=== PATIENT | male | born 1975 | race Caucasian/White ===

== ENCOUNTER → 2020-09-04 09:05 | Outpatient (BNVA) | payer MEDICAID, SELFPAY | PROVIDERS: PCP Family Medicine; Visit Provider Nurse Practitioner Gerontology ==

== ENCOUNTER 2020-12-09 11:16 | Emergency (ER) | payer MEDICAID, SELFPAY ==
[2020-12-09 11:31] VITALS: BP 117/76; PULSE 119; RESP 18; TEMP 36.6; O2SAT 97; BMI 28.9
--- NOTE | 2020-12-09 12:05 | ED.SKABFB ---
HPI - Skin/Abscess/Foreign Bdy General Chief complaint: Skin/Abscess/Foreign Body Stated complaint: back pain Time Seen by Provider: 12/09/20 11:57 Source: patient Mode of arrival: ambulatory Limitations: no limitations History of Present Illness HPI narrative: 45 y/o male presenting with a painful, tender boil to the center of his back for the last 2 days. At first he thought he just hurt his back but then noticed a big red bump. He states it has gotten much better in 24 hours and he had a difficult time sleeping last night due to the pain. He noticed white pustules on the surface today but there has been no drainage. He denies fever, chills, N/V/D. This has happened to his once before on his chest that required surgical excision. MD complaint: abscess/boil Onset (ago): day(s) (2) Tetanus up to date: yes Location: back Severity: severe Quality: aching Pain Consistency: constant Relieving factors: none Exacerbating factors: movement and other (laying supine) Context: none Associated symptoms: denies other symptoms Treatments prior to arrival: none Related Data Home Medications Medication Instructions Recorded Confirmed ibuprofen 800 mg tablet 800 mg PO Q8H 09/04/20 09/04/20 levothyroxine 100 mcg capsule 100 mcg PO DAILY 09/04/20 09/04/20 simvastatin 40 mg tablet 40 mg PO DAILY 09/04/20 09/04/20 Previous Rx's Medication Instructions Recorded lancets 28 gauge 28 gauge MISCELLANEOUS TID 30 Days 07/18/20 #100 ea losartan 50 mg tablet 50 mg PO DAILY 90 Days #90 tab 08/01/20 exenatide microspheres 2 mg/0.65 2 mg SUBCUT Q7D #4 ea 08/14/20 mL subcutaneous pen injector simvastatin 40 mg tablet 40 mg PO BEDTIME #30 tab 08/16/20 insulin glargine 100 unit/mL (3 16 unit SUBCUT BID #15 ml 09/04/20 mL) subcutaneous pen canagliflozin 300 mg tablet 300 mg PO QAM #30 tab 09/07/20 blood sugar diagnostic #300 ea 09/08/20 exenatide microspheres 2 mg/0.85 2 mg SUBCUT QWEEK 30 Days #4.25 ml 09/08/20 mL subcutaneous auto-injector metformin 500 mg tablet 1,000 mg PO BID #120 tab 11/10/20 BD Alyssa 2nd Gen Pen Needle 32 #50 ea NS 11/13/20 gauge x cholecalciferol (vitamin D3) 50 50 mcg PO DAILY 30 Days #30 cap 11/27/20 mcg (2,000 unit) capsule doxycycline monohydrate 100 mg PO BID #14 tab 12/09/20 Allergies Allergy/AdvReac Type Severity Reaction Status Date / Time Penicillins [PENICILLINS] Allergy Unknown RASH/BREATHING Verified 12/09/20 11:36 DIFFICULTY Review of Systems Review of Systems: Constitutional: No Fever, No Chills Cardiovascular: No Chest Pain, No SOB Respiratory: No Cough, No Sputum Gastrointestinal: No Nausea, No Vomiting, No Diarrhea, No abdominal Pain Musculoskeletal: No joint pain, No Myalgias Skin: + Skin Lesions, No rash Heme/Lymph: No Bruising, No Lymphadenopathy PMFSH Past Medical History Attestation statement: The following information was validated with the patient. 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 Mother No problems noted. Maternal Grandmother Diabetes Social History Social History (Updated 09/04/20 @ 09:07 by La Dee Roly) Household Members: None Smoking Status: Never smoker Advance Directives: No Advance Directives Information Provided: No Physical Exam Vital Signs: Vital Signs: Last Vital Signs Temp 97.9 F 12/09/20 11:31 Pulse 119 H 12/09/20 11:31 Resp 18 12/09/20 11:31 BP 117/76 12/09/20 11:31 Pulse Ox 97 12/09/20 11:31 Body Mass Index 28.9 Appearance: Alert. Oriented X3. No acute distress. HEENT: normal inspection CVS: Normal heart rate and rhythm. Pulses normal. Respiratory: No respiratory distress. Skin: Skin warm and dry. Normal skin color. Normal skin turgor. No rashes. Back: large 8 cm raised, red and tender boil on the middle of his back with multiple small pustules on the surface. Extremities: atraumatic, no edema Neuro: Oriented X 3. No motor deficit. No sensory deficit. Course Course Course Narrative: 45 y/o male presenting with tender boil on his back consistent with a carbuncle, tender and erythematous - anemable to I&D today but will likely require surgical follow up and possible excision. Patient agreeable with plan. Tolerated procedure well. packing place. Advised to return to ED in 2 days and f/u with Surgery. Stable for d/c. Procedures Abscess I/D Site: back Local Anesthetic: lidocaine 2% Amount of anesthesia used (mL): 2 Technique: incised with blade Sent for culture/gram staining?: Yes Irrigation: Yes Packing used?: iodoform Critical Care Time Critical Care Time Critical Care Time: No Discharge Plan Discharge Clinical Impression: Carbuncle Patient Disposition: Home, Self-Care Instructions: Abscess Incision and Drainage (DC) Additional Instructions: Come back to the ER in 2 days for packing removal and reassessment of the wound. Recommend calling Surgery office Friday morning to arrange assessment by a Surgeon. Take the prescribed antibiotics as directed. If you notice increase in pain, redness, or develop a fever come back to the ER for further evaluation. Prescriptions: New doxycycline monohydrate 100 mg tablet 100 mg PO BID Qty: 14 RF: 0 No Action lancets [FreeStyle Lancets] 28 gauge misc 28 gauge miscellaneous TID 30 Days Qty: 100 RF: 6 losartan 50 mg tablet 50 mg PO DAILY 90 Days Qty: 90 RF: 1 Bydureon 2 mg/0.65 mL pen injector 2 mg subcut Q7D Qty: 4 RF: 1 simvastatin 40 mg tablet 40 mg PO BEDTIME Qty: 30 RF: 3 canagliflozin [Invokana] 300 mg tablet 300 mg PO QAM Qty: 30 RF: 2 Bydureon BCise 2 mg/0.85 mL auto-injector 2 mg subcut QWEEK 30 Days Qty: 4.25 RF: 4 (DME) FreeStyle Lite Strips Strip See Rx Instructions .MEDSUPPLY Qty: 300 RF: 2 metformin 500 mg tablet 1,000 mg PO BID Qty: 120 RF: 1 (DME) pen needle, diabetic [BD Alyssa 2nd Gen Pen Needle] 32 gauge x 5/32 needle See Rx Instructions .MEDSUPPLY Qty: 50 RF: 4 cholecalciferol (vitamin D3) 50 mcg (2,000 unit) capsule 50 mcg PO DAILY 30 Days Qty: 30 RF: 4 ibuprofen 800 mg tablet 800 mg PO Q8H RF: 0 simvastatin 40 mg tablet 40 mg PO DAILY RF: 0 levothyroxine 100 mcg capsule 100 mcg PO DAILY RF: 0 Lantus Solostar U-100 Insulin 100 unit/mL (3 mL) insulin pen 16 unit subcut BID Qty: 15 RF: 3 Referrals: Rafa Ya MD [Physician] - 2 days (large carbuncle on back, hx similar on chest requiring surgical excision)
== END 2020-12-09 13:02 | disposition home or self-care (01) ==
PROVIDERS: Emergency Provider Emergency Medicine; PCP Family Medicine
DX: L02.232 Carbuncle of back [any part, except buttock and flank] (principal); E11.9 Type 2 diabetes mellitus without complications; I10 Essential (primary) hypertension; E78.5 Hyperlipidemia, unspecified; Z79.4 Long term (current) use of insulin; Z79.02 Long term (current) use of antithrombotics/antiplatelets; Z79.899 Other long term (current) drug therapy
CPT/HCPCS: 10060; 87071; 87205; 99283; 99284

== ENCOUNTER 2020-12-11 11:21 | Emergency (ER) | payer MEDICAID, SELFPAY ==
[2020-12-11 11:37] VITALS: BP 116/75; PULSE 96; RESP 16; TEMP 36.8; O2SAT 99; BMI 25.0
--- NOTE | 2020-12-11 11:45 | ED_ITS ---
HPI - General Adult General Chief complaint: Recheck/Abnormal Lab/Rx Stated complaint: wound check Time Seen by Provider: 12/11/20 11:44 History of Present Illness HPI narrative: Patient returns for packing removal after abscess I and D 2 days ago, he feels much better has no fever no chills no pain and no complaints Related Data Home Medications Medication Instructions Recorded Confirmed ibuprofen 800 mg tablet 800 mg PO Q8H 09/04/20 09/04/20 levothyroxine 100 mcg capsule 100 mcg PO DAILY 09/04/20 09/04/20 simvastatin 40 mg tablet 40 mg PO DAILY 09/04/20 09/04/20 Previous Rx's Medication Instructions Recorded lancets 28 gauge 28 gauge MISCELLANEOUS TID 30 Days 07/18/20 #100 ea losartan 50 mg tablet 50 mg PO DAILY 90 Days #90 tab 08/01/20 exenatide microspheres 2 mg/0.65 2 mg SUBCUT Q7D #4 ea 08/14/20 mL subcutaneous pen injector simvastatin 40 mg tablet 40 mg PO BEDTIME #30 tab 08/16/20 insulin glargine 100 unit/mL (3 16 unit SUBCUT BID #15 ml 09/04/20 mL) subcutaneous pen blood sugar diagnostic #300 ea 09/08/20 exenatide microspheres 2 mg/0.85 2 mg SUBCUT QWEEK 30 Days #4.25 ml 09/08/20 mL subcutaneous auto-injector metformin 500 mg tablet 1,000 mg PO BID #120 tab 11/10/20 BD Alyssa 2nd Gen Pen Needle 32 #50 ea NS 11/13/20 gauge x 5/32 cholecalciferol (vitamin D3) 50 50 mcg PO DAILY 30 Days #30 cap 11/27/20 mcg (2,000 unit) capsule canagliflozin 300 mg tablet 300 mg PO QAM #30 tab 12/09/20 doxycycline monohydrate 100 mg PO BID #14 tab 12/09/20 Allergies Allergy/AdvReac Type Severity Reaction Status Date / Time Penicillins [PENICILLINS] Allergy Unknown RASH/BREATHING Verified 12/11/20 11:37 DIFFICULTY Review of Systems Review of Systems: No fever no chills no dizziness no back pain no joint pains no other skin rash no numbness or weakness Yes all other systems are reviewed and are negative PMFSH Past Medical History Source: nursing notes reviewed Medical History Depression Dyslipidemia Essential hypertension Gout Hypothyroidism Obesity (BMI 30.0-34.9) Proteinuria Type 2 diabetes mellitus with diabetic polyneuropathy Type 2 diabetes mellitus with other diabetic kidney complication Surgical History Hx of removal of cyst Family History Family History Father No problems noted. Mother No problems noted. Maternal Grandmother Diabetes Social History Social History (Updated 09/04/20 @ 09:07 by La Dee [facility]) Household Members: None Smoking Status: Never smoker Advance Directives: No Advance Directives Information Provided: No Physical Exam Vital Signs: Vital Signs: Last Vital Signs Temp 98.3 F 12/11/20 11:37 Pulse 96 12/11/20 11:37 Resp 16 12/11/20 11:37 BP 116/75 12/11/20 11:37 Pulse Ox 99 12/11/20 11:37 Body Mass Index 25.0 General appearance is comfortable relaxed and no distress Neck is supple Respiratory no distress Back exam there is a mildly indurated area with minimal erythema with packing in place with some continued drainage, no fluctuance no surrounding cellulitis no significant tenderness Course Course Course Narrative: Packing is removed from back abscess, there is no fluctuance no surrounding cellulitis and infection seems to be very improved and patient will continue antibiotics Discharge Plan Discharge Clinical Impression: Wound check, abscess Patient Disposition: Home, Self-Care Additional Instructions: Packing was removed and wound looks very good, you can apply warm soaks to facilitate complete drainage Return any time any worse condition or any concerns Prescriptions: No Action lancets [FreeStyle Lancets] 28 gauge misc 28 gauge miscellaneous TID 30 Days Qty: 100 RF: 6 losartan 50 mg tablet 50 mg PO DAILY 90 Days Qty: 90 RF: 1 Bydureon 2 mg/0.65 mL pen injector 2 mg subcut Q7D Qty: 4 RF: 1 simvastatin 40 mg tablet 40 mg PO BEDTIME Qty: 30 RF: 3 Bydureon BCise 2 mg/0.85 mL auto-injector 2 mg subcut QWEEK 30 Days Qty: 4.25 RF: 4 (DME) FreeStyle Lite Strips Strip See Rx Instructions .MEDSUPPLY Qty: 300 RF: 2 metformin 500 mg tablet 1,000 mg PO BID Qty: 120 RF: 1 (DME) pen needle, diabetic [BD Alyssa 2nd Gen Pen Needle] 32 gauge x 5/32 needle See Rx Instructions .MEDSUPPLY Qty: 50 RF: 4 cholecalciferol (vitamin D3) 50 mcg (2,000 unit) capsule 50 mcg PO DAILY 30 Days Qty: 30 RF: 4 canagliflozin [Invokana] 300 mg tablet 300 mg PO QAM Qty: 30 RF: 0 doxycycline monohydrate 100 mg tablet 100 mg PO BID Qty: 14 RF: 0 ibuprofen 800 mg tablet 800 mg PO Q8H RF: 0 simvastatin 40 mg tablet 40 mg PO DAILY RF: 0 levothyroxine 100 mcg capsule 100 mcg PO DAILY RF: 0 Lantus Solostar U-100 Insulin 100 unit/mL (3 mL) insulin pen 16 unit subcut BID Qty: 15 RF: 3
== END 2020-12-11 12:23 | disposition home or self-care (01) ==
PROVIDERS: Emergency Provider Emergency Medicine; PCP Family Medicine
DX: L02.212 Cutaneous abscess of back [any part, except buttock and flank] (principal); Z48.00 Encounter for change or removal of nonsurgical wound dressing; R79.89 Other specified abnormal findings of blood chemistry; I10 Essential (primary) hypertension; E11.9 Type 2 diabetes mellitus without complications; Z79.899 Other long term (current) drug therapy
CPT/HCPCS: 99283

== ENCOUNTER → 2020-12-20 14:42 | Outpatient (BNVA) | payer MEDICAID, SELFPAY | PROVIDERS: PCP Family Medicine; Visit Provider Surgery | DX: Z48.817 Encounter for surgical aftercare following surgery on the skin and subcutaneous tissue (principal); Z87.2 Personal history of diseases of the skin and subcutaneous tissue | CPT/HCPCS: 99202 ==

== ENCOUNTER 2021-01-11 12:53 | Outpatient (REF) | payer MEDICAID, SELFPAY ==
[2021-01-11 13:52] LABS: Hematocrit 46.9 % (42-52); Mean Corpuscular HGB Conc 34.1 g/dl (31.0-36.0); Mean Corpuscular Hemoglobin 33.6 pg (27.0-33.0); Mean Corpuscular Volume 98.5 fL (80-98); Mean Platelet Volume 10.6 fL (9.4-12.4); Platelet Count 229 X10*3/uL (160-400); Red Blood Count 4.76 X10*6/uL (4.60-5.80); Red Cell Distribution Width 12.4 % (11.0-16.0); White Blood Count 8.1 X10*3/uL (4.8-10.8)
[2021-01-11 14:04] LABS: Estimated Average Glucose 151 mg/dL; Hemoglobin A1c % 6.9 %
[2021-01-11 14:14] LABS: Creatinine Urine 60.36 mg/dL
[2021-01-11 14:17] LABS: Alanine Aminotransferase 30 U/L (0-40); Albumin Level 4.9 g/dL (3.5-5.0); Alkaline Phosphatase 87 U/L (39-117); Anion Gap 15 (12-20); Aspartate Amino Transferase 28 U/L (5-37); Bilirubin Total 0.5 mg/dL (0.0-1.0); Blood Urea Nitrogen 12 mg/dL (9-16); Calcium 10.1 mg/dL (8.4-10.2); Carbon Dioxide 26 mmol/L (22-29); Chloride 103 mmol/L (96-108); Cholesterol 131 mg/dL; Estimated Glomerular Filt Rate > 60; Glucose Fasting 107 mg/dL (60-99); HDL Cholesterol 57 mg/dL; LDL Cholesterol Calculated 52 mg/dl; Potassium 4.3 mmol/L (3.3-5.1); Sodium 140 mmol/L (135-145); Total Protein 7.4 g/dL (6.5-8.0); Triglycerides 113 mg/dL
[2021-01-11 14:38] LABS: Free T4 (Free Thyroxine) 1.07 ng/dL (0.71-1.85); Thyroid Stimulating Hormone 1.18 uIU/mL (0.32-4.0)
[2021-01-12 04:42] LABS: LDL Cholesterol Direct 58 mg/dL (<100)
== END 2021-01-11 12:54 | disposition home or self-care (01) ==
LOC: HO.LAB 12:53
PROVIDERS: Absent Provider Family Medicine; PCP Family Medicine; Visit Provider Nurse Practitioner Gerontology
DX: E03.9 Hypothyroidism, unspecified (principal); E11.29 Type 2 diabetes mellitus with other diabetic kidney complication; E78.00 Pure hypercholesterolemia, unspecified; Z79.899 Other long term (current) drug therapy
CPT/HCPCS: 36415; 80053; 80061; 82043; 82550; 83036; 83721; 84439; 84443; 85027

== ENCOUNTER → 2021-02-01 12:38 | Outpatient (BNVA) | payer MEDICAID, SELFPAY | PROVIDERS: PCP Family Medicine; Visit Provider Nurse Practitioner Gerontology | DX: E11.29 Type 2 diabetes mellitus with other diabetic kidney complication (principal); E11.42 Type 2 diabetes mellitus with diabetic polyneuropathy; R80.9 Proteinuria, unspecified; I10 Essential (primary) hypertension; E78.5 Hyperlipidemia, unspecified; E66.9 Obesity, unspecified; Z79.4 Long term (current) use of insulin | CPT/HCPCS: 82947; 99212 ==

== ENCOUNTER → 2021-04-19 12:53 | Outpatient (BNVA) | payer MEDICAID, SELFPAY | PROVIDERS: PCP Family Medicine; Visit Provider Nurse Practitioner Gerontology | DX: E11.29 Type 2 diabetes mellitus with other diabetic kidney complication (principal); E11.42 Type 2 diabetes mellitus with diabetic polyneuropathy; I10 Essential (primary) hypertension; E78.5 Hyperlipidemia, unspecified; E66.9 Obesity, unspecified; R80.9 Proteinuria, unspecified; Z79.4 Long term (current) use of insulin | CPT/HCPCS: 82947; 83036; 99212 ==

== ENCOUNTER → 2021-05-23 14:39 | Outpatient (BNVA) | payer MEDICAID, SELFPAY | PROVIDERS: PCP Family Medicine; Visit Provider Nurse Practitioner Gerontology | DX: E11.29 Type 2 diabetes mellitus with other diabetic kidney complication (principal); E11.42 Type 2 diabetes mellitus with diabetic polyneuropathy; E78.5 Hyperlipidemia, unspecified; E66.9 Obesity, unspecified; R80.9 Proteinuria, unspecified; I10 Essential (primary) hypertension; Z79.4 Long term (current) use of insulin | CPT/HCPCS: 82947; 99212 ==

== ENCOUNTER → 2021-06-06 14:31 | Outpatient (BNVA) | payer MEDICAID, SELFPAY | PROVIDERS: PCP Family Medicine; Visit Provider Nurse Practitioner Gerontology ==

== ENCOUNTER 2021-06-19 12:57 | Outpatient (REF) | payer MEDICAID, SELFPAY ==
--- NOTE | ~2021-06-19 | XR_ITS ---
EXAMINATION: XR CHEST CLINICAL INFORMATION: Shortness of breath. Hypothyroid. Hypertension. COMPARISON: September 19, 2019 TECHNIQUE: 2 views of the chest were obtained. FINDINGS: No significant abnormality is noted involving the heart, lungs, mediastinum, bony thorax or soft tissues. XR/XR chest 2V IMPRESSION: No acute disease.
[2021-06-19 13:12] LABS: MANUAL DIFF FLAG NO
[2021-06-19 13:43] LABS: Basophils Absolute Auto 0.1 X10*3/uL (0.0-0.2); Basophils Percent Auto 0.8 % (0-2); Eosinophils Absolute Auto 0.4 X10*3/uL (0.0-0.4); Eosinophils Percent Auto 3.6 % (0-4); Hematocrit 47.6 % (42.0-52.0); Hemoglobin 16.4 g/dl (14.0-18.0); Imm Gran Abs Auto 0.03 X10*3/uL (0.00-0.03); Imm Gran Pct Auto 0.3 % (0.0-0.4); Lymphocytes Absolute Auto 2.4 X10*3/uL (1.2-4.9); Lymphocytes Percent Auto 24.3 % (20-40); Mean Corpuscular HGB Conc 34.5 g/dl (31.0-36.0); Mean Corpuscular Hemoglobin 33.9 pg (27.0-33.0); Mean Corpuscular Volume 98.3 fL (80.0-98.0); Mean Platelet Volume 10.3 fL (9.4-12.4); Monocytes Absolute Auto 0.9 X10*3/uL (0.1-1.2); Monocytes Percent Auto 9.3 % (2-11); Neutrophils Absolute Auto 5.97 x10*3/uL (2.0-8.3); Neutrophils Percent Auto 61.7 % (45-73); Platelet Count 252 X10*3/uL (160-400); Red Blood Count 4.84 X10*6/uL (4.60-5.80); Red Cell Distribution Width 12.3 % (11.0-16.0); White Blood Count 9.7 X10*3/uL (4.8-10.8)
[2021-06-19 14:06] LABS: Estimated Average Glucose 157 mg/dL; Hemoglobin A1c % 7.1 %
[2021-06-19 14:08] LABS: Alanine Aminotransferase 49 U/L (0-40); Anion Gap 17 (12-20); Blood Urea Nitrogen 18 mg/dL (9-16); Carbon Dioxide 24 mmol/L (22-29); Chloride 105 mmol/L (96-108); Estimated Glomerular Filt Rate > 60; Potassium 4.4 mmol/L (3.3-5.1); Sodium 142 mmol/L (135-145)
[2021-06-19 14:28] LABS: Free T4 (Free Thyroxine) 1.04 ng/dL (0.71-1.85); Thyroid Stimulating Hormone 1.85 uIU/mL (0.32-4.0)
== END 2021-06-19 12:58 | disposition home or self-care (01) ==
LOC: HO.XRAY 12:57
PROVIDERS: PCP Family Medicine; Visit Provider Family Medicine
DX: E11.9 Type 2 diabetes mellitus without complications (principal); I10 Essential (primary) hypertension; E78.00 Pure hypercholesterolemia, unspecified; E03.9 Hypothyroidism, unspecified; R06.02 Shortness of breath; Z79.899 Other long term (current) drug therapy
CPT/HCPCS: 36415; 71046; 80051; 82550; 82565; 83036; 84439; 84443; 84460; 84520; 85025

== ENCOUNTER 2021-07-30 10:25 | Outpatient (REF) | payer MEDICAID, SELFPAY | END 2021-07-30 10:26 | disposition home or self-care (01) | LOC: HO.LNP 10:25 | PROVIDERS: PCP Family Medicine; Visit Provider Surgery | DX: L02.91 Cutaneous abscess, unspecified (principal) | CPT/HCPCS: 10061; 87071; 87205; 99212 ==

== ENCOUNTER → 2021-08-13 11:30 | Outpatient (BNVA) | payer MEDICAID, SELFPAY | PROVIDERS: PCP Family Medicine; Visit Provider Surgery | DX: Z09 Encounter for follow-up examination after completed treatment for conditions other than malignant neoplasm (principal); Z87.2 Personal history of diseases of the skin and subcutaneous tissue | CPT/HCPCS: 99212 ==

== ENCOUNTER → 2021-08-28 14:51 | Outpatient (BNVA) | payer MEDICAID, SELFPAY | PROVIDERS: PCP Family Medicine; Visit Provider Surgery | DX: Z48.817 Encounter for surgical aftercare following surgery on the skin and subcutaneous tissue (principal); Z87.2 Personal history of diseases of the skin and subcutaneous tissue | CPT/HCPCS: 99212 ==

== ENCOUNTER → 2021-09-26 13:06 | Outpatient (BNVA) | payer MEDICAID, SELFPAY | PROVIDERS: PCP Family Medicine; Visit Provider Registered Nurse Diabetes Educator ==

== ENCOUNTER → 2021-10-11 12:03 | Outpatient (BNVA) | payer MEDICAID, SELFPAY | PROVIDERS: PCP Family Medicine; Visit Provider Nurse Practitioner Gerontology | DX: E11.21 Type 2 diabetes mellitus with diabetic nephropathy (principal); E11.42 Type 2 diabetes mellitus with diabetic polyneuropathy; Z79.4 Long term (current) use of insulin; R80.9 Proteinuria, unspecified; I10 Essential (primary) hypertension; E78.5 Hyperlipidemia, unspecified; E66.9 Obesity, unspecified; Z68.31 Body mass index [BMI] 31.0-31.9, adult | CPT/HCPCS: 82947; 83036; 99212 ==

== ENCOUNTER 2022-01-11 11:07 | Outpatient (REF) | payer MEDICAID, SELFPAY ==
[2022-01-11 12:26] LABS: Vitamin D 25-OH Total 47.2 ng/mL (>30)
[2022-01-11 12:27] LABS: Alanine Aminotransferase 47 U/L (0-40); Albumin Level 4.7 g/dL (3.5-5.0); Alkaline Phosphatase 88 U/L (39-117); Anion Gap 14 (12-20); Aspartate Amino Transferase 36 U/L (5-37); Bilirubin Total 0.8 mg/dL (0.0-1.0); Blood Urea Nitrogen 14 mg/dL (9-16); Calcium 10.6 mg/dL (8.4-10.2); Carbon Dioxide 27 mmol/L (22-29); Chloride 102 mmol/L (96-108); Cholesterol 150 mg/dL; Estimated Glomerular Filt Rate 58; Glucose Fasting 99 mg/dL (60-99); HDL Cholesterol 47 mg/dL; LDL Cholesterol Calculated 77 mg/dl; Potassium 4.8 mmol/L (3.3-5.1); Sodium 138 mmol/L (135-145); Total Protein 7.4 g/dL (6.5-8.0); Triglycerides 130 mg/dL
[2022-01-11 13:00] LABS: Creatinine Urine 96.23 mg/dL; Microalbum/Creatinine Ratio Ur 41.5 ug/mg cr
[2022-01-12 18:21] LABS: LDL Cholesterol Direct 87 mg/dL (<100)
== END 2022-01-11 11:08 | disposition home or self-care (01) ==
LOC: HO.LAB 11:07
PROVIDERS: PCP Family Medicine; Visit Provider Nurse Practitioner Gerontology
DX: E11.29 Type 2 diabetes mellitus with other diabetic kidney complication (principal); E55.9 Vitamin D deficiency, unspecified
CPT/HCPCS: 36415; 80053; 80061; 82043; 82306; 83721

== ENCOUNTER 2022-07-23 10:19 | Outpatient (REF) | payer MEDICAID, SELFPAY ==
[2022-07-23 12:00] LABS: Alanine Aminotransferase 71 U/L (0-40); Aspartate Amino Transferase 75 U/L (5-37); Blood Urea Nitrogen 17 mg/dL (9-16); Cholesterol 167 mg/dL; Estimated Glomerular Filt Rate > 60; Glucose Fasting 193 mg/dL (60-99); HDL Cholesterol 48 mg/dL; LDL Cholesterol Calculated 86 mg/dl; Triglycerides 166 mg/dL
[2022-07-24 05:24] LABS: Estimated Average Glucose 154 mg/dL
== END 2022-07-23 10:20 | disposition home or self-care (01) ==
LOC: HO.LAB 10:19
PROVIDERS: PCP Family Medicine; Visit Provider Family Medicine
DX: E11.9 Type 2 diabetes mellitus without complications (principal); E03.9 Hypothyroidism, unspecified; E78.00 Pure hypercholesterolemia, unspecified; Z79.899 Other long term (current) drug therapy
CPT/HCPCS: 36415; 80061; 82550; 82565; 82947; 83036; 84450; 84460; 84520

== ENCOUNTER → 2022-09-11 09:33 | Outpatient (BNVA) | payer MEDICAID, SELFPAY | PROVIDERS: PCP Family Medicine; Visit Provider Internal Medicine Endocrinology, Diabetes & Metabolism | DX: E11.42 Type 2 diabetes mellitus with diabetic polyneuropathy (principal); Z79.4 Long term (current) use of insulin | CPT/HCPCS: 82947; 99212 ==

== ENCOUNTER → 2023-01-08 09:45 | Outpatient (BNVA) | payer MEDICAID, SELFPAY | PROVIDERS: PCP Family Medicine; Visit Provider Internal Medicine Endocrinology, Diabetes & Metabolism | DX: E11.42 Type 2 diabetes mellitus with diabetic polyneuropathy (principal); E11.29 Type 2 diabetes mellitus with other diabetic kidney complication; I10 Essential (primary) hypertension; E03.9 Hypothyroidism, unspecified; E78.5 Hyperlipidemia, unspecified; M62.838 Other muscle spasm; Z79.4 Long term (current) use of insulin | CPT/HCPCS: 82947; 83036; 99212 ==

== ENCOUNTER 2023-01-27 10:58 | Outpatient (REF) | payer MEDICAID, SELFPAY ==
[2023-01-27 13:46] LABS: Alanine Aminotransferase 80 U/L (0-40); Anion Gap 15 (12-20); Aspartate Amino Transferase 66 U/L (5-37); Blood Urea Nitrogen 16 mg/dL (9-16); Carbon Dioxide 24 mmol/L (22-29); Chloride 102 mmol/L (96-108); Estimated Glomerular Filt Rate > 60; Glucose Fasting 152 mg/dL (60-99); Potassium 4.4 mmol/L (3.3-5.1); Sodium 137 mmol/L (135-145)
[2023-01-27 13:50] LABS: Creatinine Urine 57.22 mg/dL; Microalbum/Creatinine Ratio Ur 104.8 ug/mg cr
[2023-01-27 13:52] LABS: T4 Thyroxine 7.3 ug/dL (4.5-12.0); Thyroid Stimulating Hormone 5.35 uIU/mL (0.32-4.0)
[2023-01-27 13:54] LABS: Estimated Average Glucose 171 mg/dL; Hemoglobin A1c % 7.6 %
[2023-02-06 15:38] LABS: FIB-ALT 70 U/L (9-46); FIB-Alpha-2-Macroglobulin 183 mg/dL (106-279); FIB-Apolipoprotein A1 157 mg/dL (94-176); FIB-GGT 288 U/L (3-95); FIB-Haptoglobin 223 mg/dL (43-212); FIB-Total Bilirubin 0.5 mg/dL (0.2-1.2); Liver Fibrosis Score 0.29; Liver Fibrosis Stage F1; Nec Inflam Act Grade A1-A2; Nec Inflam Act Score 0.41
== END 2023-01-27 10:59 | disposition home or self-care (01) ==
LOC: HO.10HDL 10:58
PROVIDERS: Visit Provider Family Medicine
DX: K75.81 Nonalcoholic steatohepatitis (NASH) (principal); I10 Essential (primary) hypertension; E11.9 Type 2 diabetes mellitus without complications; R06.02 Shortness of breath; E03.9 Hypothyroidism, unspecified
CPT/HCPCS: 36415; 80051; 81596; 82043; 82565; 82947; 83036; 84436; 84443; 84450; 84460; 84520

== ENCOUNTER 2023-02-12 10:24 | Outpatient (REF) | payer MEDICAID, SELFPAY ==
[2023-02-12 10:37] LABS: MANUAL DIFF FLAG NO
[2023-02-12 11:01] LABS: Basophils Absolute Auto 0.1 X10*3/uL (0.0-0.2); Basophils Percent Auto 0.9 % (0-2); Eosinophils Absolute Auto 0.2 X10*3/uL (0.0-0.4); Eosinophils Percent Auto 2.4 % (0-4); Hematocrit 46.9 % (42.0-52.0); Hemoglobin 15.8 g/dl (14.0-18.0); Imm Gran Abs Auto 0.03 X10*3/uL (0.00-0.03); Imm Gran Pct Auto 0.3 % (0.0-0.4); Lymphocytes Absolute Auto 2.1 X10*3/uL (1.2-4.9); Lymphocytes Percent Auto 21.3 % (20-40); Mean Corpuscular HGB Conc 33.7 g/dl (31.0-36.0); Mean Corpuscular Hemoglobin 33.4 pg (27.0-33.0); Mean Corpuscular Volume 99.2 fL (80.0-98.0); Mean Platelet Volume 10.2 fL (9.4-12.4); Monocytes Absolute Auto 0.9 X10*3/uL (0.1-1.2); Monocytes Percent Auto 8.7 % (2-11); Neutrophils Absolute Auto 6.7 x10*3/uL (2.0-8.3); Neutrophils Percent Auto 66.4 % (45-73); Platelet Count 250 X10*3/uL (160-400); Red Blood Count 4.73 X10*6/uL (4.60-5.80); Red Cell Distribution Width 12.1 % (11.0-16.0); White Blood Count 10.1 X10*3/uL (4.8-10.8)
[2023-02-12 11:24] LABS: Estimated Average Glucose 174 mg/dL; Hemoglobin A1c % 7.7 %
[2023-02-12 11:30] LABS: Alanine Aminotransferase 74 U/L (0-40); Anion Gap 10 (12-20); Aspartate Amino Transferase 59 U/L (5-37); Blood Urea Nitrogen 11 mg/dL (9-16); Carbon Dioxide 27 mmol/L (22-29); Chloride 103 mmol/L (96-108); Estimated Glomerular Filt Rate > 60; Glucose Fasting 129 mg/dL (60-99); Potassium 4.3 mmol/L (3.3-5.1); Sodium 136 mmol/L (135-145)
[2023-02-12 11:49] LABS: Free T4 (Free Thyroxine) 1.02 ng/dL (0.71-1.85); Thyroid Stimulating Hormone 3.38 uIU/mL (0.32-4.0)
[2023-02-19 14:52] LABS: FIB-ALT 66 U/L (9-46); FIB-Alpha-2-Macroglobulin 168 mg/dL (106-279); FIB-Apolipoprotein A1 165 mg/dL (94-176); FIB-GGT 294 U/L (3-95); FIB-Haptoglobin 191 mg/dL (43-212); FIB-Total Bilirubin 0.4 mg/dL (0.2-1.2); Liver Fibrosis Score 0.23; Liver Fibrosis Stage F0-F1; Nec Inflam Act Grade A1-A2; Nec Inflam Act Score 0.37
== END 2023-02-12 10:25 | disposition home or self-care (01) ==
LOC: HO.LAB 10:24
PROVIDERS: PCP Family Medicine; Visit Provider Family Medicine
DX: K75.81 Nonalcoholic steatohepatitis (NASH) (principal); I10 Essential (primary) hypertension; E11.9 Type 2 diabetes mellitus without complications; R06.02 Shortness of breath; E03.9 Hypothyroidism, unspecified
CPT/HCPCS: 36415; 80051; 81596; 82565; 82947; 83036; 84439; 84443; 84450; 84460; 84520; 85025

== ENCOUNTER 2023-02-25 10:01 | Outpatient (AMB) | payer MEDICAID, SELFPAY ==
--- NOTE | 2023-02-25 10:11 | A.OFFVIS_ITS ---
Intake Intake Visit Reasons: Type 2 DM General Agent Required: No Accompanied by: Self / Same As Patient Allergies Penicillins [PENICILLINS] Allergy (Unknown, Verified 01/08/23 09:50) RASH/BREATHING DIFFICULTY HPI Comprehensive Diabetes Asmnt Most Recent Diabetes Results: Microalb/Creat Ratio 104.8 ug/mg cr 01/27/23 Cholesterol 167 mg/dL 07/23/22 HDL Cholesterol 48 mg/dL 07/23/22 Triglycerides 166 mg/dL 07/23/22 Creatinine 0.99 mg/dL (0.5-1.4) 02/12/23 Blood Urea Nitrogen 11 mg/dL (9-16) 02/12/23 Sodium 136 mmol/L (135-145) 02/12/23 Potassium 4.3 mmol/L (3.3-5.1) 02/12/23 Chloride 103 mmol/L (96-108) 02/12/23 Carbon Dioxide 27 mmol/L (22-29) 02/12/23 Calcium 10.6 mg/dL (8.4-10.2) H 01/11/22 AST 59 U/L (5-37) H 02/12/23 ALT 74 U/L (0-40) H 02/12/23 Total Protein 7.4 g/dL (6.5-8.0) 01/11/22 Albumin 4.7 g/dL (3.5-5.0) 01/11/22 [facility] Medical History Abscess Depression Dyslipidemia Essential hypertension Gout Hypothyroidism Obesity (BMI 30.0-34.9) Proteinuria Type 2 diabetes mellitus with diabetic 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 Mother No problems noted. Maternal Grandmother Diabetes Social History Household Members: None Alcohol intake: former Patient Tobacco Use Status: Never used Tobacco Assessment & Plan Assessment & Plan (1) Type 2 diabetes mellitus with other diabetic kidney complication: Code(s): E11.29 - Type 2 diabetes mellitus with other diabetic kidney complication Plan: Learning objectives: The patient was provided with verbal and written education on the following topics as outlined below. The patient met all learning objectives and was able to verbalize understanding and provide teach back of education topics discussed . The patient was provided with the opportunity to ask questions and all questions were answered. Patient Assessment Assess patient education level/literacy/barriers Patient questions/concerns, patient reports he lives alone, for exercise he walks to and from the corner store every day. Patient does his own food shopping and meal prep What is Diabetes? Pathophysiology How the body produces and uses insulin Identify type of DM Risk factors Signs of Diabetes Blood glucose monitoring When/how often to test Target blood sugar ranges Patient did not bring meter to today's visit Introduction to Nutrition Importance of healthy diet in managing DM Diet is personalized to individual preference Review patient?s regular diet/food preferences Who prepares meals/does food shopping/ Dining out?/ Barriers? How diet effects glucose Eating 3 balanced meals a day with small, healthy snacks between meals Review food groups Carbohydrates: What is a carbohydrate/Which food/food groups are considered carbohydrates Effect of carbohydrates on blood glucose Portion sizes Reading food labels Basic carb counting (if applicable per nursing assessment) Plate method Meal planning Recommendations: Follow plate method, consistent carbs and read nutritional labels. Smart Goal: Bring meter to every visit at [facility] Educational Materials: The patient was provided with the following written educational materials: Planning Healthy Meals Handout Patient Response to instructions: Comprehension of Instructions: Fair Readiness to make changes: Contemplation How confident they feel about making changes: Poor Patient Instructions: Include regular daily activity. ADA recommends 30 minutes of exercise 5 days a week. Weight loss talk to PCP or Recycling Center Operator before starting new plan. Test blood sugar as directed; Fasting and 2hpp largest meal. Watch trends in results. Utilize results and to assess how food, physical activity and medications affect blood sugar results. Bring glucometer or CGM to next visit. Be knowledgeable about diabetes medication, its action, side effects, efficacy, toxicity, prescribed dosage, appropriate timing and frequency of administration, effect of missed and delayed doses and instructions for storage, travel and safety. Coding Level of Care Code Est Pt Level 1 (53772) Diagnoses Type 2 diabetes mellitus with other diabetic kidney complication E11.29
== END 2023-02-25 10:36 | disposition home or self-care (01) ==
PROVIDERS: PCP Family Medicine; Visit Provider Registered Nurse Diabetes Educator
DX: E11.29 Type 2 diabetes mellitus with other diabetic kidney complication (principal)

== ENCOUNTER → 2023-02-25 10:01 | Outpatient (BNVA) | payer MEDICAID, SELFPAY | PROVIDERS: Visit Provider Registered Nurse Diabetes Educator | DX: E11.29 Type 2 diabetes mellitus with other diabetic kidney complication (principal) | CPT/HCPCS: 99211 ==

== ENCOUNTER 2023-05-13 10:11 | Outpatient (AMB) | payer MEDICAID, SELFPAY ==
--- NOTE | 2023-05-13 10:12 | MHC.OFFVIS ---
Intake Vital Signs 05/13/23 10:16 Weight 247 lb BP 102/64 Blood Pressure Location Lt brachial Position Sitting Pulse 80 Pulse Source Pulse Oximeter Intake Visit Reasons: f/u Type 2 DM/LVM Intake Note: Patient presents today to follow up on Type 2 Diabetes Mellitus. Patient receives DME supplies through: Last Diabetic Eye exam: 3 years ago Last Podiatry Visit:Has appt in May 2023 Random Glucose:247 mg/dl HgA1C:7.2% Inside Sales Trainer Required: No Accompanied by: Self / Same As Patient Allergies Penicillins [PENICILLINS] Allergy (Unknown, Verified 05/13/23 10:18) RASH/BREATHING DIFFICULTY Medication List - Last Reconciled 05/13/23 by Navin Aggarwal MD allopurinol 300 mg PO DAILY ascorbate calcium (vitamin C) 500 mg PO DAILY BD Alyssa 2nd Gen Pen Needle (pen needle, diabetic) once a day NS blood sugar diagnostic (FreeStyle Lite Strips) 3 times a day blood-glucose meter (FreeStyle Lite Meter kit) As directed bupropion HCl 150 mg PO BID canagliflozin (Invokana) 300 mg PO QAM cholecalciferol (vitamin D3) (Vitamin D3) 50 mcg PO DAILY dulaglutide (Trulicity) 1.5 mg (0.5 mL) subcut QWEEK ibuprofen 800 mg PO Q8H insulin glargine (Lantus Solostar U-100 Insulin) 16 units (0.16 mL) subcut ONCE lancets (FreeStyle Lancets) USE TO CHECK BLOOD SUGAR THREE TIMES DAILY lancets (FreeStyle Lancets) As directed levothyroxine (Levoxyl) 100 mcg PO DAILY loratadine 10 mg PO DAILY losartan 50 mg PO DAILY metformin ER 2,000 mg (4 x 500 mg) PO DAILY simvastatin 40 mg PO BEDTIME sulfamethoxazole-trimethoprim 800-160 mg (Bactrim DS) 1 tab PO BID HPI HPI Comments History of Present Illness Details Patient is a 48 year male with type 2 diabetes diagnosed February of 2010 who presents forcontinued management. . Past Medical History includes: Diabetes type 2, depression, hypothyroidism, hypertension, hyperlipidemia. Micro and Macro Vascular Complications: Nephropathy Diabetes Medications: Invokana 300 mg daily, Lantus 16 units daily, metformin ER 500 mg 4 pills once a day. Trulicity 1.5 mg Qwkly Had injection site reaction to Bydureon. Took Trulicity in past and tolerated nicely Blood glucose: Average 180, range 132 to 237 , 1.2 readings per day. Symptoms: occasional muscle spasms in legs Hypoglycemia: denies Activity: 30 minutes to an hour of walking twice a day on most days Podiatry: continues every 3 months. Has appt Eye exam: had appt 3 yrs ago. 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 Mother No problems noted. Maternal Grandmother Diabetes Social History Household Members: None Alcohol intake: former Patient Tobacco Use Status: Never used Tobacco Physical Exam Vital Signs: Last Vital Signs Pulse 80 05/13/23 10:16 BP 102/64 05/13/23 10:16 Absence of Cushingoid features. Absence of acromegalic features. Neck exam reveals nl size thyroid about 15 gms. No thyroid nodules palpable. No carotid bruits present. Lungs CTA. Heart S1 S2, Reg R/R. No M/R/ G. Skin exam reveals absence of vitiligo or acanthosis nigricans. Abdominal exam reveals Soft NT/ND with NA BS. No organomegaly present. Neck Other: . Extrem Other: Visual exam of foot performed. No ulcerations or open lesions. No onchomycosis, no callouses.Pulses 2 + distally Sensation decreased to monofilament exam. Vibratory sensation sensed is decreased with 128 Hz tuning fork Results AMB Hemoglobin A1c AMB Hemoglobin A1c 7.2 % Last Edit by Lillie Forte on 05/13/23 10:33 Results Reviewed Results Reviewed: 05/13/23 10:21 Glucose, Whole Blood Routine Laboratory Last Values Glucose (Clinic) 247 mg/dL (60-115) H 05/13/23 10:21 Hgb A1c (Clinic) 7.2 % (4.0-6.0) H 05/13/23 10:25 Assessment & Plan Assessment & Plan (1) Type 2 diabetes mellitus with diabetic polyneuropathy: Code(s): E11.42 - Type 2 diabetes mellitus with diabetic polyneuropathy Qualifiers: Diabetes mellitus custodial insulin use: with custodial use Qualified Code(s): E11.42 - Type 2 diabetes mellitus with diabetic polyneuropathy; Z79.4 - long term care social worker (current) use of insulin Plan: This is a 47-year-old white male with a history of type 2 diabetes being treated metformin, Invokana and Trulicity and basal insulin with could improved glycemic control and known microvascular complications of micro albuminuria and neuropathy. The plan is to increase the Trulicity to 3 mg q.week . I will have the patient check his point of care before and 2 hours after breakfast and dinner. Will talk to the patient about getting a Sensor like Mignon or Dexcom. Will start Mignon 2. Orders: Orders AMB Hemoglobin A1c Today E11.29 - Type 2 diabetes mellitus with other diabetic kidney complication Lipid Panel Today E11.42 - Type 2 diabetes mellitus with diabetic polyneuropathy Medications: New flash glucose scanning reader (FreeStyle Mignon 2 [place]) As directed 1 ea 0RF dulaglutide (Trulicity) 3 mg (0.5 mL) subcut QWEEK 2 mL 5RF flash glucose sensor (FreeStyle Mignon 2 Sensor kit) As directed change every 14 days 2 ea 5RF Discontinued dulaglutide (Trulicity) Discontinued Reason: Doctor's Order 1.5 mg (0.5 mL) subcut QWEEK 2 mL 5RF Coding Level of Care Code Est Pt Level 4 (82917) Diagnoses Type 2 diabetes mellitus with diabetic polyneuropathy, with long-term current use of insulin E11.42; Z79.4 Diabetes mellitus custodial insulin use: with custodial use
[2023-05-13 10:16] VITALS: BP 102/64; PULSE 80
[2023-05-13 10:27] LABS: Glucose, Whole Blood 247 mg/dL (60-115)
== END 2023-05-13 10:49 | disposition home or self-care (01) ==
PROVIDERS: PCP Family Medicine; Visit Provider Internal Medicine Endocrinology, Diabetes & Metabolism
DX: E11.42 Type 2 diabetes mellitus with diabetic polyneuropathy (principal); Z79.4 Long term (current) use of insulin; E11.29 Type 2 diabetes mellitus with other diabetic kidney complication
CPT/HCPCS: 99214

== ENCOUNTER → 2023-05-13 10:11 | Outpatient (BNVA) | payer MEDICAID, SELFPAY | PROVIDERS: Visit Provider Internal Medicine Endocrinology, Diabetes & Metabolism | DX: E11.29 Type 2 diabetes mellitus with other diabetic kidney complication (principal); E11.42 Type 2 diabetes mellitus with diabetic polyneuropathy; Z79.85 Long-term (current) use of injectable non-insulin antidiabetic drugs | CPT/HCPCS: 82947; 83036; 99212 ==

== ENCOUNTER → 2023-05-20 12:14 | Outpatient (REF) | payer MEDICAID, SELFPAY ==
--- NOTE | 2023-05-20 12:20 | ECG_ITS ---
Test Reason : tachycardia Blood Pressure : / mmHG Vent. Rate : 092 BPM Atrial Rate : 092 BPM P-R Int : 150 ms QRS Dur : 088 ms QT Int : 358 ms P-R-T Axes : 069 -15 024 degrees QTc Int : 442 ms Normal sinus rhythm Nonspecific ST abnormality Abnormal ECG When compared with ECG of 19-SEP-2019 17:35, Nonspecific ST abnormality is now Present Referred By: Nathan Hoffman Electronically Signed By:RUKHSANA LAGUERRE
== END ==
LOC: HO.CARD 12:14
PROVIDERS: PCP Family Medicine; Visit Provider Family Medicine
DX: R00.0 Tachycardia, unspecified (principal)
CPT/HCPCS: 93005

== ENCOUNTER 2023-07-21 13:28 | Outpatient (REF) | payer MEDICAID, SELFPAY ==
[2023-07-21 13:47] LABS: MANUAL DIFF FLAG NO
[2023-07-21 14:22] LABS: Estimated Average Glucose 160 mg/dL; Hemoglobin A1c % 7.2 % (<6.0)
[2023-07-21 14:34] LABS: Basophils Absolute Auto 0.1 X10*3/uL (0.0-0.2); Basophils Percent Auto 0.8 % (0-2); Eosinophils Absolute Auto 0.6 X10*3/uL (0.0-0.4); Eosinophils Percent Auto 5.1 % (0-4); Hematocrit 43.7 % (42.0-52.0); Hemoglobin 15.2 g/dl (14.0-18.0); Imm Gran Abs Auto 0.03 X10*3/uL (0.00-0.03); Imm Gran Pct Auto 0.3 % (0.0-0.4); Lymphocytes Absolute Auto 2.2 X10*3/uL (1.2-4.9); Lymphocytes Percent Auto 20.1 % (20-40); Mean Corpuscular HGB Conc 34.8 g/dl (31.0-36.0); Mean Corpuscular Hemoglobin 34.6 pg (27.0-33.0); Mean Corpuscular Volume 99.5 fL (80.0-98.0); Mean Platelet Volume 10.5 fL (9.4-12.4); Monocytes Absolute Auto 1.1 X10*3/uL (0.1-1.2); Monocytes Percent Auto 10.1 % (2-11); Neutrophils Absolute Auto 6.9 x10*3/uL (2.0-8.3); Neutrophils Percent Auto 63.6 % (45-73); Platelet Count 283 X10*3/uL (160-400); Red Blood Count 4.39 X10*6/uL (4.60-5.80); Red Cell Distribution Width 12.5 % (11.0-16.0); White Blood Count 10.8 X10*3/uL (4.8-10.8)
[2023-07-21 14:48] LABS: Alanine Aminotransferase 47 U/L (0-40); Aspartate Amino Transferase 53 U/L (5-37); Cholesterol 162 mg/dL (<200); Glucose Fasting 166 mg/dL (60-99); HDL Cholesterol 44 mg/dL (>40); LDL Cholesterol Calculated 40 mg/dL (<100); Triglycerides 391 mg/dL (<150)
[2023-07-21 14:58] LABS: Free T4 (Free Thyroxine) 0.82 ng/dL (0.71-1.85)
== END 2023-07-21 13:29 | disposition home or self-care (01) ==
LOC: HO.LAB 13:28
PROVIDERS: PCP Family Medicine; Visit Provider Family Medicine
DX: E11.9 Type 2 diabetes mellitus without complications (principal); R42 Dizziness and giddiness; E78.00 Pure hypercholesterolemia, unspecified; E03.9 Hypothyroidism, unspecified; Z79.899 Other long term (current) drug therapy
CPT/HCPCS: 36415; 80061; 82550; 82947; 83036; 84439; 84443; 84450; 84460; 85025

== ENCOUNTER 2023-09-18 09:52 | Outpatient (AMB) | payer MEDICAID, SELFPAY ==
[2023-09-18 09:55] VITALS: BP 98/70; PULSE 96; BMI 30.8
--- NOTE | 2023-09-18 09:55 | A.OFFVIS_ITS ---
Intake Vital Signs 09/18/23 09:55 Height 6 ft 3 in Weight 246 lb 4.101 oz BMI 30.8 BP 98/70 Blood Pressure Location Lt brachial Position Sitting Pulse 96 Pulse Source Pulse Oximeter Intake Visit Reasons: f/u Type 2 DM-unable to lvm Intake Note: Patient presents today to follow up on D2MT. Last Diabetic Eye exam: Patient is unsure Last Podiatry Visit: 2 years ago Random Glucose: 159 mg/dl HgA1C: 7.2% 07/21/23 Rigger Up Required: No Accompanied by: Self / Same As Patient Allergies Penicillins [PENICILLINS] Allergy (Unknown, Verified 09/18/23 10:06) RASH/BREATHING DIFFICULTY Medication List - Last Reconciled 09/18/23 by Navin Aggarwal MD allopurinol 300 mg PO DAILY ascorbate calcium (vitamin C) 500 mg PO DAILY BD Alyssa 2nd Gen Pen Needle (pen needle, diabetic) once a day NS blood sugar diagnostic (FreeStyle Lite Strips) 3 times a day blood-glucose meter (FreeStyle Lite Meter kit) As directed bupropion HCl 150 mg PO BID canagliflozin (Invokana) 300 mg PO QAM cholecalciferol (vitamin D3) (Vitamin D3) 50 mcg PO DAILY dulaglutide (Trulicity) 3 mg (0.5 mL) subcut QWEEK flash glucose scanning reader (FreeStyle Mignon 2 [place]) As directed flash glucose sensor (FreeStyle Mignon 2 Sensor kit) As directed change every 14 days ibuprofen 800 mg PO Q8H insulin glargine (Lantus Solostar U-100 Insulin) 16 units (0.16 mL) subcut DAILY lancets (FreeStyle Lancets) As directed lancets (FreeStyle Lancets) DIRECTED TO TEST BLOOD SUGAR THREE TIMES DAILY levothyroxine (Levoxyl) 100 mcg PO DAILY loratadine 10 mg PO DAILY losartan 50 mg PO DAILY metformin ER 2,000 mg (4 x 500 mg) PO DAILY simvastatin 40 mg PO BEDTIME sulfamethoxazole-trimethoprim 800-160 mg (Bactrim DS) 1 tab PO BID HPI HPI Comments History of Present Illness Details Patient is a 48 year male with type 2 diabetes diagnosed February of 2010 who presents forcontinued management. . Past Medical History includes: Diabetes type 2, depression, hypothyroidism, hypertension, hyperlipidemia. Micro and Macro Vascular Complications: Nephropathy Diabetes Medications: Invokana 300 mg daily, Lantus 16 units daily, metformin ER 500 mg 4 pills once a day. Trulicity 3 mg Qwkly Had injection site reaction to Bydureon. Took Trulicity in past and tolerated nicely Blood glucose: Unfortunately, patient did not bring sensor wire glucometer follow-up visit Symptoms: occasional muscle spasms in legs Hypoglycemia: denies Activity: 30 minutes to an hour of walking twice a day on most days Podiatry: continues every 3 months. Has appt Eye exam:o. Few yrs ago. Has appt coming up [facility] Medical History (Updated 09/18/23 @ 10:08 by Navin Aggarwal MD) Hypertriglyceridemia Abscess Gout Depression Hypothyroidism Proteinuria Type 2 diabetes mellitus with diabetic polyneuropathy Dyslipidemia Essential hypertension Obesity (BMI 30.0-34.9) Type 2 diabetes mellitus with other diabetic kidney complication Surgical History Hx of removal of cyst Family History Father No problems noted. Mother No problems noted. Maternal Grandmother Diabetes Social History Household Members: None Alcohol intake: former Patient Tobacco Use Status: Never used Tobacco Physical Exam Vital Signs: Last Vital Signs Pulse 96 09/18/23 09:55 BP 98/70 09/18/23 09:55 BMI result Body Mass Index 30.8 Absence of Cushingoid features. Absence of acromegalic features. Neck exam reveals nl size thyroid about 15 gms. No thyroid nodules palpable. No carotid bruits present. Lungs CTA. Heart S1 S2, Reg R/R. No M/R/ G. Skin exam reveals absence of vitiligo or acanthosis nigricans. Abdominal exam reveals Soft NT/ND with NA BS. No organomegaly present. Neck Other: . Extrem Other: Visual exam of foot performed. No ulcerations or open lesions. No onchomycosis, no callouses.Pulses 2 + distally Sensation decreased to monofilament exam. Vibratory sensation sensed is decreased with 128 Hz tuning fork Assessment & Plan Assessment & Plan (1) Type 2 diabetes mellitus with diabetic polyneuropathy: Code(s): E11.42 - Type 2 diabetes mellitus with diabetic polyneuropathy Qualifiers: Diabetes mellitus fpc insulin use: with fpc use Qualified Code(s): E11.42 - Type 2 diabetes mellitus with diabetic polyneuropathy; Z79.4 - penitentiary (current) use of insulin Plan: This is a 47-year-old white male with a history of type 2 diabetes being treated metformin, Invokana and Trulicity and basal insulin with could improved but not optimal glycemic control and known microvascular complications of micro albuminuria and neuropathy. The plan is to change the Trulicity to Mounjaro for more palpable A1c control. Patient has already tried and failed both Trulicity and Bydureon. I urged the patient to bring his sensor to follow-up appointments and also to follow up appointment with the elementary educator (2) Hypertriglyceridemia: Code(s): E78.1 - Pure hyperglyceridemia Plan: His LDL is at goal on simvastatin but his triglycerides are markedly elevated. . Could consider adding Vascepa to the simvastatin rechecking liver profile in 8 weeks' time Medications: New tirzepatide (Mounjaro) 2.5 mg (0.5 mL) subcut QWEEK 4 weeks 2 mL 0RF icosapent ethyl (Vascepa) 2 grams (2 x 1 gram) PO BID 120 caps 4RF Refilled lancets (FreeStyle Lancets) DIRECTED TO TEST BLOOD SUGAR THREE TIMES DAILY 100 ea 2RF E11.29 - Type 2 diabetes mellitus with other diabetic kidney complication Discontinued dulaglutide (Trulicity) Discontinued Reason: Doctor's Order 3 mg (0.5 mL) subcut QWEEK 2 mL 5RF Coding Level of Care Code Est Pt Level 4 (46371) Diagnoses Type 2 diabetes mellitus with diabetic polyneuropathy, with long-term current use of insulin E11.42; Z79.4 Diabetes mellitus fpc insulin use: with pillar man use Hypertriglyceridemia E78.1
[2023-09-18 10:07] LABS: Glucose, Whole Blood 159 mg/dL (60-115)
== END 2023-09-18 10:23 | disposition home or self-care (01) ==
PROVIDERS: PCP Family Medicine; Visit Provider Internal Medicine Endocrinology, Diabetes & Metabolism
DX: E11.42 Type 2 diabetes mellitus with diabetic polyneuropathy (principal); Z79.4 Long term (current) use of insulin; E78.1 Pure hyperglyceridemia
CPT/HCPCS: 99214

== ENCOUNTER → 2023-09-18 09:52 | Outpatient (BNVA) | payer MEDICAID, SELFPAY | PROVIDERS: PCP Family Medicine; Visit Provider Internal Medicine Endocrinology, Diabetes & Metabolism | DX: E11.42 Type 2 diabetes mellitus with diabetic polyneuropathy (principal); E11.21 Type 2 diabetes mellitus with diabetic nephropathy; E78.1 Pure hyperglyceridemia; Z79.4 Long term (current) use of insulin | CPT/HCPCS: 82947; 99212 ==

== ENCOUNTER 2023-09-29 12:09 | Outpatient (AMB) | payer MEDICAID, SELFPAY ==
--- NOTE | 2023-09-29 12:50 | A.OFFVIS_ITS ---
Intake Intake Visit Reasons: f/u Type 2 DM/confirmed Band Instrument Repairer Required: No Accompanied by: Self / Same As Patient Allergies Penicillins [PENICILLINS] Allergy (Unknown, Verified 09/18/23 10:06) RASH/BREATHING DIFFICULTY HPI Comprehensive Diabetes Asmnt Most Recent Diabetes Results: Microalb/Creat Ratio 104.8 ug/mg cr 01/27/23 Cholesterol 162 mg/dL (<200) 07/21/23 HDL Cholesterol 44 mg/dL (>40) 07/21/23 Triglycerides 391 mg/dL (<150) H 07/21/23 Creatinine 0.99 mg/dL (0.5-1.4) 02/12/23 Blood Urea Nitrogen 11 mg/dL (9-16) 02/12/23 Sodium 136 mmol/L (135-145) 02/12/23 Potassium 4.3 mmol/L (3.3-5.1) 02/12/23 Chloride 103 mmol/L (96-108) 02/12/23 Carbon Dioxide 27 mmol/L (22-29) 02/12/23 AST 53 U/L (5-37) H 07/21/23 ALT 47 U/L (0-40) H 07/21/23 [facility] Medical History (Updated 09/18/23 @ 10:08 by Navin Aggarwal MD) Hypertriglyceridemia Abscess Gout Depression Hypothyroidism Proteinuria Type 2 diabetes mellitus with diabetic polyneuropathy Dyslipidemia Essential hypertension Obesity (BMI 30.0-34.9) Type 2 diabetes mellitus with other diabetic kidney complication Surgical History Hx of removal of cyst Family History Father No problems noted. Mother No problems noted. Maternal Grandmother Diabetes Social History Household Members: None Alcohol intake: former Patient Tobacco Use Status: Never used Tobacco Assessment & Plan Assessment & Plan (1) Type 2 diabetes mellitus with diabetic polyneuropathy: Code(s): E11.42 - Type 2 diabetes mellitus with diabetic polyneuropathy Qualifiers: Diabetes mellitus usp insulin use: with usp use Qualified Code(s): E11.42 - Type 2 diabetes mellitus with diabetic polyneuropathy; Z79.4 - terminal gauger (current) use of insulin Plan: Learning objectives: The patient was provided with verbal and written education on the following topics as outlined below. Assess patient education level/literacy/barriers Patient questions/concerns, patient did not bring meter to today's visit, patient works as a laundry worker on weekends. Does not do regular physical activity. Patient reports his lancing device is broken, patient given new lancing device at today's visit The patient met all learning objectives and was able to verbalize understanding and provide teach back of education topics discussed . The patient was provided with the opportunity to ask questions and all questions were answered. Topics covered in today?s session included: Insulin/Injectables (If applicable) * Storage/care of insulin?? * Injection sites? * Site rotation? * Onset, peak, duration * Drawing up insulin? * Injecting insulin/other injectables? * Sharps disposal Continuous blood glucose monitoring (if applicable) Hypoglycemia and Hyperglycemia * Signs and symptoms? * Causes?? * Treatment? * Preventing hypoglycemia? * When to seek medical attention * Blood glucose targets and how you feel when your blood glucose is in and out of your target ranges. * Monitoring and knowing your A1C. * What can make blood glucose go up and down and preventing high and low blood glucose. ?Patient was receptive to information provided and participated in the discussion. Asked?appropriate questions and demonstrated good understanding of the topics discussed.? ? Educational Materials: The patient was provided with the following written educational materials: Target Goal handout Smart Goal Assessment:? Patient will bring meter to every visit at endocrine center Pt met goal less than 25% New Smart Goal: Continue with same smart goals Patient Response to instructions: Comprehension of Instructions: Fair Readiness to make changes:? Pre contemplation How confident they feel about making changes: Poor Patient Instructions: Patient will follow-up with perioperative educator in 6 months Coding Level of Care Code Est Pt Level 1 (28200) Diagnoses Type 2 diabetes mellitus with diabetic polyneuropathy, with long-term current use of insulin E11.42; Z79.4 Diabetes mellitus local company intermodal truck driver insulin use: with usp use
== END 2023-09-29 12:52 | disposition home or self-care (01) ==
PROVIDERS: PCP Family Medicine; Visit Provider Registered Nurse Diabetes Educator
DX: E11.42 Type 2 diabetes mellitus with diabetic polyneuropathy (principal); Z79.4 Long term (current) use of insulin

== ENCOUNTER → 2023-09-29 12:09 | Outpatient (BNVA) | payer MEDICAID, SELFPAY | PROVIDERS: PCP Family Medicine; Visit Provider Registered Nurse Diabetes Educator | DX: E11.42 Type 2 diabetes mellitus with diabetic polyneuropathy (principal); Z79.4 Long term (current) use of insulin | CPT/HCPCS: 99211 ==

== ENCOUNTER 2024-03-16 15:30 | Outpatient (AMB) | payer MEDICAID, SELFPAY ==
[2024-03-16 15:32] VITALS: BP 90/70; PULSE 94; BMI 27.5
--- NOTE | 2024-03-16 15:32 | A.OFFVIS_ITS ---
Vital Signs 03/16/24 15:32 Height 6 ft 3 in Weight 220 lb 3.869 oz BMI 27.5 BP 90/70 Blood Pressure Location Lt brachial Position Sitting Pulse 94 Pulse Source Pulse Oximeter Intake Visit Reasons: Type 2 DM-lvm Intake Note: New Patient presents today to establish treatment for Type 2 Diabetes Mellitus: Last Podiatry Exam: 2022 Most recent HbA1c: 6.9% Random Glucose: 120 mg/dL Trustee Of Estate Required: No Accompanied by: Self / Same As Patient Allergies Penicillins [PENICILLINS] Allergy (Unknown, Verified 03/16/24 15:37) RASH/BREATHING DIFFICULTY HPI Comments Details: This is a 48-year-old male with a past medical history of type 2 diabetes with nephropathy, hypothyroidism, depression, dyslipidemia, obesity and hypertension presenting for diabetes management. He was last seen by Dr. Aggarwal on 09/18/2023. CGM download could not be reviewed because patient did not bring it to the appointment. Patient says he has not been checking his blood glucose because he does not have a glucometer or CGM though it looks like both were prescribed in the past. Hemoglobin a1c is 6.9%. Lost 26 pounds since starting Mounjaro and improving his diet over the past 5 months. Current medication regimen: Invokana 300 mg Lantus 16 units daily Metformin extended release 2000 mg daily Mounjaro 2.5 mg weekly Diet: Breakfast- sometimes doesn't eat it and sometimes gets a small sausage egg and cheese wrap and has coffee with cream and splenda from [employer] donuts. Lunch/Dinner-Orders take out, salad or fish from local restaurants, sometimes misses lunch or dinner Snacks/desserts: none no alcohol Hypoglycemia symptoms: none Hyperglycemia symptoms: none Patient sees podiatry every few months. Eye exam: [facility], 09/22/2023. No retinopathy or macular edema. Microvascular complications: Nephropathy and neuropathy Macrovascular complications: None Hypertension: treated with losartan 50 mg. Soft BP today and last visit. He has had some lightheadedness when he stands up occasionally. Hyperlipidemia: treated with simvastatin 40 mg. LDL at goal <100. Triglycerides were elevated. He was started on the Vascepa. ROS: Constitutional: No unexplained weight loss, fever, chills, fatigue or night sweats. Eyes: No vision changes Respiratory: No shortness of breath Cardiovascular: No chest pain Gastrointestinal: No anorexia, nausea, vomiting or diarrhea. No abdominal pain or blood Neurologic: No numbness or tingling in the extremities. Endocrine: No cold or heat intolerance. No polyuria or polydipsia. Physical exam: Constitutional: Alert, in no distress. Eyes: Pupils are equal, round and reactive to light. Extraocular muscles intact. Neck: Supple, Full range of motion. No lymphadenopathy. No palpable thyroid masses. Respiratory: Clear to auscultation. Cardiovascular: S1 S2 regular. No murmurs. Right foot: Warm and well perfused. No clubbing, cyanosis or edema. DP pulse 3+. mildly decreased vibratory sensation. mildly decreased sensation to monofilament. Left foot: Warm and well perfused. No clubbing, cyanosis or edema. DP pulse 3+. mildly decreased vibratory sensation. mildly decreased sensation to monofilament. [facility] Medical History (Updated 03/16/24 @ 16:24 by PAUL Welch) Hypertriglyceridemia Abscess Gout Depression Hypothyroidism Proteinuria Type 2 diabetes mellitus with diabetic polyneuropathy Dyslipidemia Essential hypertension Obesity (BMI 30.0-34.9) Type 2 diabetes mellitus with other diabetic kidney complication Surgical History Hx of removal of cyst Family History Father No problems noted. Mother No problems noted. Maternal Grandmother Diabetes Social History Household Members: None Alcohol intake: former Patient Tobacco Use Status: Never used Tobacco Physical Exam Vital Signs: Last Vital Signs Pulse 94 03/16/24 15:32 BP 90/70 03/16/24 15:32 BMI result Body Mass Index 27.5 Results AMB Hemoglobin A1c AMB Hemoglobin A1c 6.9 % Last Edit by DOMINIC Tijerina on 03/16/24 15:50 Results Reviewed Results Reviewed: Laboratory Last Values Hgb A1c (Clinic) 6.9 % (4.0-6.0) H 03/16/24 15:42 Laboratory Tests 07/21/23 03/16/24 13:45 15:42 Hgb A1c (Clinic) 6.9 H Hemoglobin A1c % 7.2 H Triglycerides 391 H Cholesterol 162 LDL Cholesterol, Calc 40 HDL Cholesterol 44 Laboratory Tests 01/27/23 02/12/23 11:08 10:35 Creatinine 0.99 Estimated GFR > 60 Urine Creatinine 57.22 Urine Microalbumin 60.0 Microalb/Creat Ratio 104.8 Assessment & Plan Assessment & Plan (1) Type 2 diabetes mellitus with other diabetic kidney complication: Code(s): E11.29 - Type 2 diabetes mellitus with other diabetic kidney complication Category: Medical (2) Proteinuria: Code(s): R80.9 - Proteinuria, unspecified Category: Medical Qualifiers: Proteinuria type: unspecified Qualified Code(s): R80.9 - Proteinuria, unspecified (3) Hypertriglyceridemia: Code(s): E78.1 - Pure hyperglyceridemia Category: Medical (4) Essential hypertension: Code(s): I10 - Essential (primary) hypertension Category: Medical (5) Obesity (BMI 30.0-34.9): Code(s): E66.9 - Obesity, unspecified Category: Medical Plan In summary this is a 48-year-old male with controlled type 2 diabetes. Congra tulated on weight loss. He is not at his goal weight yet. He denies symptoms of hypoglycemia. Will increase Mounjaro to 5 mg once weekly. If he experiences hypoglycemic events we will decrease basal insulin. I sent diabetic testing supplies for glucometer and CGM. I reviewed the importance of monitoring blood glucose regularly. Referred to [place] re: glucose monitoring. His blood pressure is running low. Reduce losartan to 25 mg daily. Labs requested. Check LFTs and lipid profile since starting Vascepa. Follow-up in 3 months for diabetes. Orders: Orders Creatinine Today E11.29 - Type 2 diabetes mellitus with other diabetic kidney complication, E78.1 - Pure hyperglyceridemia, E78.5 - Hyperlipidemia, unspecified Microalbumin, Random (w Creat) Today E11.29 - Type 2 diabetes mellitus with other diabetic kidney complication, E78.1 - Pure hyperglyceridemia, E78.5 - Hyperlipidemia, unspecified Liver Panel Today E11.29 - Type 2 diabetes mellitus with other diabetic kidney complication, E66.9 - Obesity, unspecified, E78.1 - Pure hyperglyceridemia, I10 - Essential (primary) hypertension, R80.9 - Proteinuria, unspecified AMB Hemoglobin A1c Today E11.29 - Type 2 diabetes mellitus with other diabetic kidney complication, Z13.9 - Encounter for screening, unspecified Lipid Panel Today E11.29 - Type 2 diabetes mellitus with other diabetic kidney complication, E78.1 - Pure hyperglyceridemia, E78.5 - Hyperlipidemia, unspecified TSH reflex Free T4 Today E03.9 - Hypothyroidism, unspecified Referrals Diabetes Education Referral E11.42 - Type 2 diabetes mellitus with diabetic polyneuropathy, Z79.4 - long term care administrator (current) use of insulin Medications: New losartan Replaces Losartan 50 mg. 25 mg PO DAILY 90 tabs 1RF blood-glucose sensor (FreeStyle Mignon 3 Sensor device) As directed 2 ea 11RF blood-glucose meter (FreeStyle Lite Meter kit) As directed 1 ea 0RF tirzepatide (Mounjaro) Replaces Mounjaro 2.5mg 5 mg (0.5 mL) subcut QWEEK 2 mL 5RF blood-glucose meter,continuous (FreeStyle Mignon 3 [place]) as directed 1 ea 0RF Refilled blood sugar diagnostic (FreeStyle Lite Strips) USE DIRECTED 3 TIMES A DAY TO TEST BLOOD SUGAR 300 strips 4RF E11.65 - Type 2 diabetes mellitus with hyperglycemia lancets (FreeStyle Lancets) DIRECTED TO TEST BLOOD SUGAR THREE TIMES DAILY 100 ea 2RF E11.29 - Type 2 diabetes mellitus with other diabetic kidney complication Discontinued flash glucose scanning reader (FreeStyle Mignon 2 [place]) Discontinued Reason: Doctor's Order As directed 1 ea 0RF tirzepatide (Mounjaro) Discontinued Reason: Doctor's Order 2.5 mg (0.5 mL) subcut QWEEK 2 mL 4RF flash glucose sensor (FreeStyle Mignon 2 Sensor kit) Discontinued Reason: Doctor's Order As directed change every 14 days 2 ea 5RF losartan Discontinued Reason: Doctor's Order 50 mg PO DAILY 30 tabs 0RF E11.29 - Type 2 diabetes mellitus with other diabetic kidney complication Coding Level of Care Code Est Pt Level 4 (61935) Complex EM visit Add On G2211 Diagnoses Type 2 diabetes mellitus with other diabetic kidney complication E11.29 Proteinuria, unspecified type R80.9 Proteinuria type: unspecified Hypertriglyceridemia E78.1 Essential hypertension I10 Obesity (BMI 30.0-34.9) E66.9
[2024-03-17 07:23] LABS: Glucose, Whole Blood 120 mg/dL (60-115)
== END 2024-03-16 16:15 | disposition home or self-care (01) ==
PROVIDERS: PCP Family Medicine; Visit Provider Physician Assistant Medical
DX: E11.29 Type 2 diabetes mellitus with other diabetic kidney complication (principal); R80.9 Proteinuria, unspecified; E78.1 Pure hyperglyceridemia; I10 Essential (primary) hypertension; E66.9 Obesity, unspecified; Z13.9 Encounter for screening, unspecified
CPT/HCPCS: 99214

== ENCOUNTER → 2024-03-16 15:30 | Outpatient (BNVA) | payer MEDICAID, SELFPAY | PROVIDERS: PCP Family Medicine; Visit Provider Physician Assistant Medical | DX: E11.29 Type 2 diabetes mellitus with other diabetic kidney complication (principal); E11.42 Type 2 diabetes mellitus with diabetic polyneuropathy; R80.9 Proteinuria, unspecified; E78.1 Pure hyperglyceridemia; E66.9 Obesity, unspecified; Z68.27 Body mass index [BMI] 27.0-27.9, adult | CPT/HCPCS: 82947; 83036; 99212 ==

== ENCOUNTER 2024-03-29 12:33 | Outpatient (AMB) | payer MEDICAID, SELFPAY ==
--- NOTE | 2024-03-29 12:41 | A.OFFVIS_ITS ---
Intake Intake Visit Reasons: 30 min/CONFIRMED Analytics Associate Required: No Accompanied by: Self / Same As Patient Allergies Penicillins [PENICILLINS] Allergy (Unknown, Verified 03/16/24 15:37) RASH/BREATHING DIFFICULTY HPI Comprehensive Diabetes Asmnt Most Recent Diabetes Results: Hemoglobin A1c 8.1 % 04/13/19 Microalb/Creat Ratio 104.8 ug/mg cr 01/27/23 Cholesterol 162 mg/dL (<200) 07/21/23 HDL Cholesterol 44 mg/dL (>40) 07/21/23 Triglycerides 391 mg/dL (<150) H 07/21/23 Creatinine 0.99 mg/dL (0.5-1.4) 02/12/23 Blood Urea Nitrogen 11 mg/dL (9-16) 02/12/23 Sodium 136 mmol/L (135-145) 02/12/23 Potassium 4.3 mmol/L (3.3-5.1) 02/12/23 Chloride 103 mmol/L (96-108) 02/12/23 Carbon Dioxide 27 mmol/L (22-29) 02/12/23 Calcium 10.6 mg/dL (8.4-10.2) H 01/11/22 AST 53 U/L (5-37) H 07/21/23 ALT 47 U/L (0-40) H 07/21/23 Total Protein 7.4 g/dL (6.5-8.0) 01/11/22 Albumin 4.7 g/dL (3.5-5.0) 01/11/22 [facility] Medical History (Updated 03/17/24 @ 12:14 by Carolina Bundy NP) Learning disability Hypertriglyceridemia Abscess Gout Depression Hypothyroidism Proteinuria Type 2 diabetes mellitus with diabetic polyneuropathy Dyslipidemia Essential hypertension Obesity (BMI 30.0-34.9) Type 2 diabetes mellitus with other diabetic kidney complication Surgical History Hx of removal of cyst Family History Father No problems noted. Mother No problems noted. Maternal Grandmother Diabetes Social History Household Members: None Alcohol intake: former Patient Tobacco Use Status: Never used Tobacco Assessment & Plan Assessment & Plan (1) Type 2 diabetes mellitus with other diabetic kidney complication: Code(s): E11.29 - Type 2 diabetes mellitus with other diabetic kidney complication Plan: Learning objectives: The patient was provided with verbal and written education on the following topics as outlined below. The patient met all learning objectives and was able to verbalize understanding and provide teach back of education topics discussed . The patient was provided with the opportunity to ask questions and all questions were answered. Patient Assessment Assess patient education level/literacy/barriers patient is special needs, lives in senior care. meals and medications are managed by others Patient questions/concerns, patient's last A1c 6.7% on 02/2024. Patient did not bring meter to today's visit, reports he test glucose levels once a day Exercise Medical clearance Effect of exercise on blood sugar Start slowly and gradually increase pace/duration over time Goal amount of exercise Checking blood glucose/have a source of carbs with you Medications (If applicable) * Name of medication * Dosing/administration instructions * Mechanism of action * Potential side effects * Potential adverse reaction and appropriate treatment * Review onset, peak, duration Assess for concerns re: insurance coverage, cost, barriers to compliance Insulin/Injectables (If applicable) * Storage/care of insulin * Injection sites * Site rotation * Onset, peak, duration * Drawing up insulin * Injecting insulin/other injectables * Sharps disposal Continuous blood glucose monitoring (if applicable) Hypoglycemia and Hyperglycemia * Signs and symptoms * Causes * Treatment * Preventing hypoglycemia * When to seek medical attention Medical alert bracelet Lifestyle * Work * Travel * Stress management * Problem solving Know your goals * A1C * Blood sugar targets * Blood pressure * Cholesterol/LDL Urine microalbumin Smart Goal Assessment: Patient will bring meter to every visit at endocrine center Pt met goal less than 25% Sent written note to patient's mathematics professor to please have him bring blood glucose meter with him when he comes to Endocrine Center for visits Educational Materials: The patient was provided with the following written educational materials: ADCES 7 Healthy Behaviors Reducing Risks handout Patient Response to instructions: Comprehension of Instructions: Readiness to make changes: a How confident they feel about making changes: Letter of completion of diabetes Education program will be sent to referring provider Portions of this note were created using voice recognition software, please excuse any words or phrases that may have been misinterpreted. Patient Instructions: Include regular daily activity. ADA recommends 30 minutes of exercise 5 days a week. Weight loss talk to PCP or Certified Surgical Technologist before starting new plan. Test blood sugar as directed; Fasting and 2hpp largest meal. Watch trends in results. Utilize results and to assess how food, physical activity and medications affect blood sugar results. Bring glucometer or CGM to next visit. Be knowledgeable about diabetes medication, its action, side effects, efficacy, toxicity, prescribed dosage, appropriate timing and frequency of administration, effect of missed and delayed doses and instructions for storage, travel and safety. Problem solving techniques to monitor hypo/hyperglycemia episodes and treatments. Reduce risk reduction behaviors, smoking cessation, regular eye, foot and dental examinations. Follow-up as needed Coding Level of Care Code Est Pt Level 1 (57221) Diagnoses Type 2 diabetes mellitus with other diabetic kidney complication E11.29
== END 2024-03-29 12:51 | disposition home or self-care (01) ==
PROVIDERS: PCP Family Medicine; Visit Provider Registered Nurse Diabetes Educator
DX: E11.29 Type 2 diabetes mellitus with other diabetic kidney complication (principal)

== ENCOUNTER → 2024-03-29 12:33 | Outpatient (BNVA) | payer MEDICAID, SELFPAY | PROVIDERS: PCP Family Medicine; Visit Provider Registered Nurse Diabetes Educator | DX: E11.42 Type 2 diabetes mellitus with diabetic polyneuropathy (principal); E11.29 Type 2 diabetes mellitus with other diabetic kidney complication | CPT/HCPCS: 99211 ==

== ENCOUNTER 2024-06-10 09:41 | Outpatient (REF) | payer MEDICAID, SELFPAY ==
[2024-06-10 10:35] LABS: Estimated Average Glucose 137 mg/dL; Hemoglobin A1C 181.7911 umol/L; Hemoglobin A1c % 6.4 % (<6.0); Total Hemoglobin (HGBA1C) 3917.2109 umol/L
[2024-06-10 11:10] LABS: Alanine Aminotransferase 23 U/L (0-40); Anion Gap 12 (12-20); Aspartate Amino Transferase 27 U/L (5-37); Blood Urea Nitrogen 5 mg/dL (9-16); Carbon Dioxide 28 mmol/L (22-29); Chloride 105 mmol/L (96-108); Cholesterol 116 mg/dL (<200); Estimated Glomerular Filt Rate > 60; Glucose Fasting 99 mg/dL (60-99); HDL Cholesterol 46 mg/dL (>40); LDL Cholesterol Calculated 51 mg/dL (<100); Potassium 3.9 mmol/L (3.3-5.1); Sodium 141 mmol/L (135-145); Triglycerides 97 mg/dL (<150)
[2024-06-10 11:33] LABS: Free T4 (Free Thyroxine) 0.99 ng/dL (0.71-1.85); Thyroid Stimulating Hormone 1.35 uIU/mL (0.32-4.0)
== END 2024-06-10 09:42 | disposition home or self-care (01) ==
LOC: HO.LAB 09:41
PROVIDERS: PCP Family Medicine; Visit Provider Family Medicine
DX: I10 Essential (primary) hypertension (principal); E03.9 Hypothyroidism, unspecified; E11.9 Type 2 diabetes mellitus without complications; E78.00 Pure hypercholesterolemia, unspecified; Z79.899 Other long term (current) drug therapy
CPT/HCPCS: 36415; 80051; 80061; 82550; 82565; 82947; 83036; 84439; 84443; 84450; 84460; 84520

== ENCOUNTER 2024-06-15 11:21 | Outpatient (AMB) | payer MEDICAID, SELFPAY ==
--- NOTE | 2024-06-15 11:23 | MHC.OFFVIS ---
Vital Signs 06/15/24 11:30 Height 6 ft 3 in Weight 207 lb 0.225 oz BMI 25.9 BP 94/58 L Blood Pressure Location Rt brachial Position Sitting Pulse 88 Pulse Source Pulse Oximeter Intake Visit Reasons: T2DM/LVM Intake Note: Patient present today to follow up on Type 2 Diabetes Mellitus. Last Diabetic Eye exam: 09/22/23 Last Podiatry Visit: Dr. Diaz, patient states he believes last visit was within the year Random Glucose: 88 mg/dl HgA1C: 6.4% 06/10/2024 It Telecom Technician Required: No Accompanied by: Self / Same As Patient Allergies Penicillins [PENICILLINS] Allergy (Unknown, Verified 06/15/24 11:31) RASH/BREATHING DIFFICULTY HPI Comments Details: This is a 49-year-old male with a past medical history of type 2 diabetes with nephropathy, learning disability hypothyroidism, depression, dyslipidemia, obesity and hypertension presenting for diabetes management. He was last seen by me on 03/16/24. He does not have his glucometer again today. I spoke with Tong, staff who brings him to the appointments. He will document to remind Xavi to bring the glucometer for future visits when he picks him up at home. Hemoglobin a1c is 6.4% 06/10/24. Current medication regimen: Invokana 300 mg Lantus 16 units daily Metformin extended release 2000 mg daily Mounjaro 5 mg weekly Hypoglycemia symptoms: none reported Hyperglycemia symptoms: none reported Patient sees podiatry, Dr. Martinez. Eye exam: [facility], 09/22/2023. No retinopathy or macular edema. Microvascular complications: Nephropathy and neuropathy Macrovascular complications: None Hypertension: They did not bring the medication list today, but I previously had it documented that he was on losartan 50 mg daily. Tong is going to drop the med list off this afternoon to confirm medications. Patient's blood pressure today is again on the low side however his PCP contacted us after the last visit that his blood pressure fluctuates and recommended continuing same dose of Losartan. Patient denies symptoms of hypotension. Hyperlipidemia: treated with simvastatin 40 mg and Vascepa. Lipids are at goal. ROS: Constitutional: No unexplained weight loss, fever, chills, fatigue or night sweats. Eyes: No vision changes Respiratory: No shortness of breath Cardiovascular: No chest pain Gastrointestinal: No anorexia, nausea, vomiting or diarrhea. No abdominal pain or blood Neurologic: No numbness or tingling in the extremities. No dizziness or syncope. Endocrine: No cold or heat intolerance. No polyuria or polydipsia. Physical exam: Constitutional: Alert, in no distress. Eyes: Pupils are equal, round and reactive to light. Extraocular muscles intact. Neck: Supple, Full range of motion. No lymphadenopathy. No palpable thyroid masses. Respiratory: Clear to auscultation. Cardiovascular: S1 S2 regular. No murmurs. Right foot: Warm and well perfused. No clubbing, cyanosis or edema. DP pulse 3+. mildly decreased vibratory sensation. mildly decreased sensation to monofilament. No open wounds. Left foot: Warm and well perfused. No clubbing, cyanosis or edema. DP pulse 3+. mildly decreased vibratory sensation. mildly decreased sensation to monofilament. No open wounds. [facility] Medical History (Updated 03/17/24 @ 12:14 by Carolina Bundy NP) Learning disability Hypertriglyceridemia Abscess Gout Depression Hypothyroidism Proteinuria Type 2 diabetes mellitus with diabetic polyneuropathy Dyslipidemia Essential hypertension Obesity (BMI 30.0-34.9) Type 2 diabetes mellitus with other diabetic kidney complication Surgical History Hx of removal of cyst Family History Father No problems noted. Mother No problems noted. Maternal Grandmother Diabetes Social History Household Members: None Alcohol intake: former Patient Tobacco Use Status: Never used Tobacco Physical Exam Vital Signs: Last Vital Signs Pulse 88 06/15/24 11:30 BP 94/58 L 06/15/24 11:30 BMI result Body Mass Index 25.9 Results Reviewed Results Reviewed: Laboratory Last Values Glucose (Clinic) 90 mg/dL (60-115) 06/15/24 11:36 Assessment & Plan Assessment & Plan (1) Type 2 diabetes mellitus with other diabetic kidney complication: Code(s): E11.29 - Type 2 diabetes mellitus with other diabetic kidney complication Category: Medical (2) Proteinuria: Code(s): R80.9 - Proteinuria, unspecified Category: Medical Qualifiers: Proteinuria type: unspecified Qualified Code(s): R80.9 - Proteinuria, unspecified (3) Hypertriglyceridemia: Code(s): E78.1 - Pure hyperglyceridemia Category: Medical (4) Essential hypertension: Code(s): I10 - Essential (primary) hypertension Category: Medical Plan In summary this is a 48-year-old male with controlled type 2 diabetes with macrovascular complications. Continue current regimen of Invokana, Lantus, metformin and Mounjaro. We discussed CGM, but patient feels that this could be overwhelming for him with the alerts, and he would like to continue using a fingerstick glucometer. See above notes notes in HPI regarding bringing the glucometer to appointments. Continue routine follow up visits with Podiatry and for diabetic eye exam. Follow up in 3 months for type 2 diabetes. Medications: Discontinued blood-glucose sensor (FreeStyle Mignon 3 Sensor device) Discontinued Reason: Doctor's Order As directed 2 ea 11RF blood-glucose meter,continuous (FreeStyle Mignon 3 [place]) Discontinued Reason: Doctor's Order as directed 1 ea 0RF Coding Level of Care Code Est Pt Level 4 (57461) Complex EM visit Add On G2211 Diagnoses Type 2 diabetes mellitus with other diabetic kidney complication E11.29 Proteinuria, unspecified type R80.9 Proteinuria type: unspecified Hypertriglyceridemia E78.1 Essential hypertension I10
[2024-06-15 11:30] VITALS: BP 94/58; PULSE 88; BMI 25.9
[2024-06-15 12:17] LABS: Glucose, Whole Blood 90 mg/dL (60-115)
== END 2024-06-15 11:57 | disposition home or self-care (01) ==
LOC: HO.ENCR 11:22
PROVIDERS: PCP Family Medicine; Visit Provider Physician Assistant Medical
DX: E11.29 Type 2 diabetes mellitus with other diabetic kidney complication (principal); R80.9 Proteinuria, unspecified; E78.1 Pure hyperglyceridemia; I10 Essential (primary) hypertension

== ENCOUNTER → 2024-06-15 11:21 | Outpatient (BNVA) | payer MEDICAID, SELFPAY | PROVIDERS: PCP Family Medicine; Visit Provider Physician Assistant Medical | DX: E11.21 Type 2 diabetes mellitus with diabetic nephropathy (principal); R80.9 Proteinuria, unspecified; I10 Essential (primary) hypertension; E78.1 Pure hyperglyceridemia; Z79.84 Long term (current) use of oral hypoglycemic drugs; Z79.4 Long term (current) use of insulin | CPT/HCPCS: 82947; 99212 ==

== ENCOUNTER 2024-09-08 10:26 | Outpatient (REF) | payer MEDICAID, SELFPAY ==
--- OUTSIDE RECORDS SUMMARY | 2024-09-08 11:32 | XMS_ITS | Data Portability ---
Author Organization [place] [facility] Address [address] [place] [phone] Care Team Providers Care Gravity Prospecting Observer Helper Name Role Phone YANIRA LARIOS Primary Care Provider [phone] Assessment Encounter Date Assessment Date Assessment LastModified by Organization Details LastModified Time 10/28/2020 10/28/2020 Overview/History : This is a 45-year-old patient who is new to [facility] with a past medical history significant for DM, HLD, HTN, gout, depression and hypothyroid being seen for asymptomatic covid testing. He reports feeling well. No fevers, CP, SOB, cough, N/V/D or rashes. No loss of taste/smell. Exam: Patient is alert, nontoxic appearing in no apparent distress No erythema or exudate noted in the oropharynx. No lymphadenopathy. Moist mucous membranes Normal heart sounds, no peripheral edema. Palpable pulses. Lungs are clear, diminished at bases, no rales, rhonchi or wheezing. Breathing is unlabored. Abdomen is soft, nontender positive bowel sounds. No rashes DDx considered, but not limited to: Asymptomatic Covid testing Work up/Results: Physical exam Covid test Plan/Discussion: Discussed with patient we will call with results in 3-5 days. Vitals are stable. Patient encouraged to stay hydrated. If he develops trouble breathing or chest pain he should be seen in the emergency department, otherwise symptom management reviewed. The patient is advised to make an appt with PCP in 3-5 days to discuss ongoing symptoms/ further management if needed. The patient understood and agreed with this plan. The patient was given discharge instructions and all questions were answered prior to team departure. In order to obtain further information and compare any laboratory results/values, I have accessed patient records on the [employer]. This information was pertinent in my medical decision making today. Proper Personal Protective Equipment (PPE), including gloves, eye protection, N95 mask, gown, and shoe covers were donned and doffed appropriately and all equipment cleaned using approved technique with germicidal disposable wipes prior to and after care of this patient according to [facility]'s infection prevention protocols. The patient under our care today has requested testing for the COVID-19 virus. Currently, they are asymptomatic. Testing was discussed with the patient to ensure understanding of the limitations of this test, including the fact that a negative test does not entirely exclude the possibility of COVID-19 infection. Based on the history obtained and exam today, the decision was made to test for COVID-19 in light of the current pandemic state. The patient was involved in the decision to test using a shared medical decision-making model. [email or web address] Not available 10/28/2020 14:05:46 Plan of Treatment Reminders Order Date Submit Date Provider Last Modified By Organization Details Last Modified Time Details Appointments None recorded. Lab SARS CoV 2 RNA (COVID-19), QL, acting professor-PCR, respiratory specimen 2020 021 [email or web address] [facility], [address] [place] [address], [address], 1 10:51:37 Referral None recorded. Procedures None recorded. Surgeries None recorded. Imaging None recorded. Medication Orders None recorded. Patient TargetsNo targets recorded. Patient Instructions Encounter Date Encounter Id Patient Instructions Last Modified By Organization Details Last Modified Time 10/28/2020 [id number] Pre printed instructions provided. [email or web address] Not available 10/28/2020 14:02:11 You will be advi sed of your COVID-19 results as they become available. [facility] director will contact you to let you know the results. We will also communicate the results to your primary care provider if you have one for any follow up needs you may have. Since you do not have symptoms currently, there is no recommendation to self-quarantine. Please continue to wash your hands and practice social distancing as recommended by your local government and public health agencies. If you develop mild symptoms, stay home and isolate yourself. Please continue to monitor the CDC website as the recommendations for length of quarantine change as additional information is released on this virus. Symptoms of Coronavirus What you need to know ? ? ? Anyone can have mild to severe symptoms. ? ? ? Older adults and people who have severe underlying medical conditions like heart or lung disease or diabetes seem to be at higher risk for developing more serious complications from COVID-19 illness. Watch for symptoms People with COVID-19 have had a wide range of symptoms reported ? ranging from mild symptoms to severe illness. Symptoms may appear 2-14 days after exposure to the virus. People with these symptoms may have COVID-19: ? ? ? Fever or chills ? ? ? Cough ? ? ? Shortness of breath or difficulty breathing ? ? ? Fatigue ? ? ? Muscle or body aches ? ? ? Headache ? ? ? New loss of taste or smell ? ? ? Sore throat ? ? ? Congestion or runny nose ? ? ? Nausea or vomiting ? ? ? Diarrhea This list does not include all possible symptoms. The CDC will continue to update this list as we learn more about COVID-19. When to Seek Emergency Medical Attention Look for emergency warning signs* for COVID-19. If someone is showing any of these signs, seek emergency medical care immediately ? ? ? Trouble breathing ? ? ? Persistent pain or pressure in the chest ? ? ? New confusion ? ? ? Inability to wake or stay awake ? ? ? Bluish lips or face *This list does not include all possible symptoms. Please call your medical provider for any other symptoms that are severe or concerning to you. Call 911 or call ahead to your local emergency facility: Notify the telecommunications operator that you are seeking care for someone who has or may have COVID-19. [email or web address] Not available 10/28/2020 13:37:17 Reason for Referral None Reported. Results Created Date Observation Date Name Description Value Unit Range Abnormal Flag Note LastModifiedBy Organization Detail LastModifiedTime 10/29/19 21 10/29/2020 covid -19 (nove l coron aviru s) PCR covid-19 PCR result (neg) NEGAT DENA 2019- novel Coron aviru s (2019 -nCoV ) not detec dillon by real- time RT-PC R. Note: If clini roxana suspi cion for COVID -19 is high, citlaly nue to maint ain preca ution s and consi vicente repea t testi ng. Resul t repor dillon to the [facility]. To preve nt error s in diagn osis, test resul ts shoul d be inter prete d in the fausto xt of clini roxana findi ngs and other labor atory data. Rare polym orphi sms exist that could lead to false -nega tive or false -posi tive resul ts. If resul ts obtai erik do not match the clini roxana findi ngs, addit ional testi ng shoul d be consi dered . This test has been autho rized by the FDA under an Emerg ency Use Autho rizat ion (EUA) for use by autho rized labor atori es. Testi ng perfo rmed by real time PCR utili [employer] SARS- CoV-2 test. Not Available [facility] [address] [place], [address], 10/29/2020 19:13:08 10/29/1910/29/2020 covid -19 (nove l coron aviru s) PCR covid-19 PCR specimen source NASAL Not Available [facility] [address] [place], [address], 10/29/2020 19:13:08 Result Notes None recorded. Procedures Surgical History Date Name Laterality Status Provider Name and Address Organization Details Recorded Time 10/29/19 Medication Review completed Lizzy Cunningham NP [address], [place], [address], [place] [facility] 10/28/2020 13:39:10 Imaging Results None recorded. Procedure Notes None recorded. Medical Equipment None Reported. Allergies Allergen ID Allergen Name Allergen Category Reaction Reaction Severity Criticality Documentation Date Start Date Code Code System Note Provider Name and Address Organization Details Recorded Time 764494 Product containin g penicilli n and antibioti c (product) medicatio n Not available Not available Not available 10/28/2020 86749 05 SNOMED Lizzy Cunningham NP [address] [place], [address], [place] [facility] 14:06:06 Medications Name Sig Start Date Stop Date Status Note LastModified by Organization Details LastModified Time losartan 50 mg tablet TAKE 1 TABLET BY MOUTH DAILY active Not Available Not Available Not Available metformin 500 mg tablet TAKE 2 TABLETS BY MOUTH TWICE DAILY WITH A MEAL active Not Available Not Available No t Available bupropion HCl SR 150 mg tablet,12 hr sustained-re lease TAKE 1 TABLET BY MOUTH TWICE A DAY active Not Available Not Available No t Available ibuprofen 800 mg tablet TK 1 T PO Q 8 H PRF PAIN active Not Available Not Available No t Available FreeStyle Lancets 28 gauge U UTD TID active Not Available Not Available No t Available clindamycin HCl 150 mg capsule TK 1 C PO Q 6 H TAT active Not Available Not Available No t Available simvastatin 40 mg tablet TAKE 1 TABLET BY MOUTH AT BEDTIME active Not Available Not Available No t Available levothyroxin e 100 mcg tablet TAKE 1 TABLET BY MOUTH ONCE DAILY. active Not Available Not Available No t Available allopurinol 300 mg tablet TAKE 1 TABLET BY MOUTH ONCE DAILY active Not Available Not Available No t Available metformin ER 500 mg tablet,exten ded release 24 hr TAKE 4 TABLETS BY MOUTH DAILY active Not Available Not Available Not Available cholecalcife rol (vitamin D3) 125 mcg (5,000 unit) capsule TK 1 C PO QD active Not Available Not Available No t Available loratadine 10 mg tablet TAKE 1 TABLET BY MOUTH DAILY active Not Available Not Available Not Available Mapap Arthritis Pain 650 mg tablet,exten ded release TK 1 T PO Q 6 H PRF PAIN active Not Available Not Available No t Available FreeStyle Lite Strips TEST THREE TIMES DAILY active Not Available Not Available Not Available Lantus Solostar U-100 Insulin 100 unit/mL (3 mL) subcutaneous pen ADMINISTER 18 UNITS UNDER THE SKIN EVERY DAY active Not Available Not Available No t Available cholecalcife rol (vitamin D3) 50 mcg (2,000 unit) capsule TAKE 1 CAPSULE BY MOUTH DAILY active Not Available Not Available Not Available Invokana 300 mg tablet TAKE 1 TABLET BY MOUTH EVERY MORNING active Not Available Not Available No t Available Bydureon 2 mg/0.65 mL subcutaneous pen injector INJECT CONTENTS OF 1 PEN UNDER THE SKIN Q 7 DAYS active Not Available Not Available No t Available Bydureon BCise 2 mg/0.85 mL subcutaneous auto-injecto r active Not Available Not Available Not Available BD Alyssa 2nd Gen Pen Needle 32 gauge x USE DIRECTED ONCE DAILY active Not Available Not Available N ot Available Vitals Date Recorded Respiratory rate Heart rate Oxygen saturation Oxygen saturation in Arterial blood by Pulse oximetry Body temperature Systolic blood pressure Diastolic blood pressure Provider Name and Address Organization Details Last Updated DateTime 24 /min 96 /min 97 % 97 % 98.6 [degF] 116 mm[Hg] 72 mm[Hg] Not Available [facility] 13:36:27 Social History None recorded. Functional Status None recorded. Mental Status None recorded. Family History Relationship Description Onset Age of this Age Resolved Age Notes LastModified by Organization Details LastModified Time Maternal Grandmother Diabetes mellitus [email or web address] Not available 2020 13:35:28 Medical History Condition Response Coronary Artery Disease N COPD N Depression Y Diabetes Y Cancer N Stroke N Asthma N High Cholesterol Y Pulmonary Embolism N Hypertension Y Kidney Disease N Past Encounters Encounter ID Performer Location Encounter Start Date Encounter Closed Date Diagnosis/Indication Diagnosis SNOMED-CT Code Diagnosis ICD10 Code Diagnosis Note [id number] Lizzy Cunningham NP [facility] [address] [place] [address] 10/28/2020 13:27:55 10/30/2020 01:26:00 Exposure to communicable disease 352647848 Z20.9 Type 2 jeanie betes mellitus 98231552 E11.9 Health Concerns Section Related Observation LastModified by Organization Detai ls LastModified Time None Recorded Concern Status LastModified by Organization Details LastModified Time None Recorded Advance Directives Directive None Recorded Payers Encounter Date Sequence Insurance Name Policy Number Policy Smith Covered Member ID Smith Member ID Guarantor Name 10/28/2020 1 MEDICAID-[place]: [facility] Xavi Corona [id number] Xavi Chavesley Notes Date Note Type Note Provider Name and Address Organization Details Recorded Time 10/28/2020 text/html 45yo male who is new to with a PMHx of depression, DM, HLD, HTN, gout and hypothyroid being seen for asymptomatic covid test. He reports a friend tested positive. He has had no symptoms, no fevers, cough, N/V/D or loss of sense of taste/smell. Lizzy Cunningham NP [address], [place], [address], [place] [facility] 10/28/2020 14:06:50
--- OUTSIDE RECORDS SUMMARY | 2024-09-08 11:32 | XMS_ITS | Clinical Summary ---
Author Organization [facility] Address [address] [place] [address] Care Team Providers Care Associate Project Manager Name Role Phone Nathan Hoffman MD Primary Care Provider [phone] Allergies Active Allergy Reactions Criticality Noted Date Comments Penicillins 07/05/2020 Medications Medication Sig Dispensed Refills Start Date End Date Status acetaminophen (TYLENOL) 500 mg capsule Take by mouth. Active allopurinoL (ZYLOPRIM) 300 mg tablet Take 300 mg by mouth daily. Active ascorbic acid, vitamin C, 500 mg capsule Take by mouth. Active buPROPion SR (WELLBUTRIN SR) 150 mg 12 hr tablet Take 150 mg by mouth 2 times daily. Active canagliflozin (INVOKANA) 300 mg tablet Take by mouth. Active cholecalciferol (VITAMIN D-3) 10 mcg (400 unit) capsule Take by mouth. Ac tive cholecalciferol (VITAMIN D-3) 50 mcg (2,000 unit) capsule Take 1 capsule by mouth daily. 05/21/2021 Active dulaglutide (Trulicity) 0.75 mg/0.5 mL pen injector injection ADMINISTER 0.75 MG UNDER THE SKIN EVERY WEEK 11/30/2021 Active ibuprofen (ADVIL,MOTRIN) 800 mg tablet Take 800 mg by mouth every 8 hours as needed. Active levothyroxine (SYNTHROID, LEVOTHROID) 100 mcg tablet Take 100 mcg by mouth daily. Active loratadine (CLARITIN) 10 mg tablet Take 10 mg by mouth daily. 05/24/2021 Active loratadine 10 mg capsule Take by mouth. Active losartan (COZAAR) 50 mg tablet Take 50 mg by mouth daily. Active metFORMIN XR (GLUCOPHAGE-XR) 500 mg 24 hr tablet TAKE 4 TABLETS BY MOUTH DAILY 05/23/2021 Active metFORMIN (GLUCOPHAGE) 1,000 mg tablet Take 2,000 mg by mouth 2 times daily (with meals). Active simvastatin (ZOCOR) 40 mg tablet Take 40 mg by mouth at bedtime. Active pen needle, diabetic (BD CORI 2ND GEN PEN NEEDLE MISC) USE 1 DAILY 10/01/2021 Active guaifenesin/dextromet horphan (DEXTROMETHORPHAN-GUA IFENESIN ORAL) Take by mouth. Active exenatide microspheres 2 mg/0.85 mL auto-injector injection Inject into the skin. Active FREESTYLE LANCETS MISC DIRECTED TO TEST BLOOD SUGAR THREE TIMES DAILY 11/29/2021 Active blood sugar diagnostic (FreeStyle Lite Strips) test strip USE DIRECTED TO TEST THREE TIMES DAILY 09/18/2021 Active insulin glargine,hum.rec.anlo g (LANTUS SOLOSTAR U-100 INSULIN SUBQ) Inject into the skin. Active Medical History Medical History Date Comments Hyperlipidemia DX:Hyperlipidemi a Essential hypertension DX:Essent ial hypertension Diabetes mellitus type 2, co ntrolled, with complications (CMS/HCC) DX:Diabetes mellitus type 2, controlled, with complications (HCC) Depressive disorder DX:Depressiv e disorder Hypothyroidism DX:Hypothyroidis m Intellectual disability DX:Intel lectual disability Social History Tobacco Use Types Packs/Day Years Used Date Smoking Tobacco: Never Smokeless Tobacco: Never Alcohol Use Standard Drinks/Week Comments Yes 0 (1 standard drink = 0.6 oz pur e alcohol) Sex and Gender Information Value Date Recorded Sex Assigned at Not on file Gender Identity Not on file Sexual Orientation Not on file Job Start Date Occupation Industry Not on file Not on file Not on file Obstetrics History Last Filed Vital Signs Vital Sign Reading Time Taken Comments Blood Pressure - - Pulse - - Temperature - - Respiratory Rate - - Oxygen Saturation - - Inhaled Oxygen Concentration - - Weight 107 kg (235 lb) 04/20/2024 2:22 PM EDT Height 190.5 cm (6' 3 ) 04/20/2024 2:22 PM EDT Body Mass Index 29.37 04/20/2024 2:22 PM EDT Plan of Treatment Upcoming Encounters Date Type Department Care Team (Late st Contact Info) Description 09/21/2024 1:00 PM EST Office Visit Orthopedic Surgery [facility] [address] [facility] [address] [place] [address] Josh Diaz, DPM [address] [place] [address] Health Maintenance Due Date Last Done Comments Pneumococcal Vaccine: Pediat rics (0 to 5 Years) and At-Risk Patients (6 to 64 Years) (1 of 2 - PCV) 1980 DTaP,Tdap,and Td Vaccines (1 - Tdap) 1993 Hepatitis B Vaccines (1 of 3 - 19+ 3-dose series) 1993 Cholesterol Screening (Lipid Panel) 07/20/2022 Colorectal Cancer Screening: Colonoscopy 07/20/2022 Depression Screening 07/20/2022 HIV Screening 07/20/2022 Hepatitis C Screening 07/20/2022 Social Influencers of Health Screening 07/20/2022 Zoster Vaccines (1 of 2) 2024 COVID-19 Vaccine (1 - 2023-2 5 season) 2024 Influenza Vaccine (#1) 2024 HIB Vaccines Aged Out No longer eligi ble based on patient's age to complete this topic HPV Vaccines Aged Out No longer eligi ble based on patient's age to complete this topic Hepatitis A Vaccines Aged Out No long er eligible based on patient's age to complete this topic IPV Vaccines Aged Out No longer eligi ble based on patient's age to complete this topic MMR Vaccines Aged Out No longer eligi ble based on patient's age to complete this topic Meningococcal ACWY Vaccine Aged Out N o longer eligible based on patient's age to complete this topic RSV Immunization Patients Un vicente 20 months Aged Out No longer eligible b ased on patient's age to complete this topic Varicella Vaccines Aged Out No longer eligible based on patient's age to complete this topic Care Teams Associate Project Manager Relationship Specialty Start Date End Date Nathan Hoffman MD [address] [place] [address] [place] [address] PCP - General 08/21/07
[2024-09-08 12:21] LABS: Estimated Glomerular Filt Rate > 60
== END 2024-09-08 10:27 | disposition home or self-care (01) ==
LOC: HO.10HDL 10:26
PROVIDERS: Visit Provider Physician Assistant Medical
DX: E11.29 Type 2 diabetes mellitus with other diabetic kidney complication (principal)
CPT/HCPCS: 36415; 82565

== ENCOUNTER → 2024-09-10 11:17 | Outpatient (BNVA) | payer MEDICAID, SELFPAY | PROVIDERS: PCP Family Medicine; Visit Provider Physician Assistant Medical | DX: E11.29 Type 2 diabetes mellitus with other diabetic kidney complication (principal); E78.1 Pure hyperglyceridemia; I10 Essential (primary) hypertension; R80.9 Proteinuria, unspecified | CPT/HCPCS: 82947; 83036; 99212 ==

== ENCOUNTER 2024-12-10 11:12 | Outpatient (AMB) | payer MEDICAID, SELFPAY ==
--- NOTE | 2024-12-10 11:21 | A.OFFVIS_ITS ---
Vital Signs 12/10/24 11:24 Height 6 ft 3 in Weight 227 lb 4.745 oz BMI 28.4 BP 112/82 Blood Pressure Location Rt brachial Position Sitting Pulse 83 Pulse Source Pulse Oximeter Pulse Oximetry (%) 98 Oxygen Delivery Method Room Air Intake Visit Reasons: Type II diabetes Intake Note: Patient present today to follow up on Type 2 Diabetes Mellitus. Last Diabetic Eye exam: pt unsure of exactly when. Last Podiatry Visit: Does not see a Application Support Lead Random Glucose: 113mg/dl HgA1C: 7.5% Sheriff'S Detective Required: No Accompanied by: Self / Same As Patient Allergies Penicillins [PENICILLINS] Allergy (Unknown, Verified 12/10/24 11:27) RASH/BREATHING DIFFICULTY HPI Comments Details: This is a 49-year-old male with a past medical history of type 2 diabetes with nephropathy, learning disability hypothyroidism, depression, dyslipidemia, obesity and hypertension presenting for diabetes management. Reviewed glucometer download Patient's blood sugars are in range 71% of the time with an average glucose of 165 mg/dL. Highest sugar was 234 mg/dL and lowest sugar 134 mg/dL. Hemoglobin a1c is 6.7% 09/10/2024. Hemoglobin A1c today is 7.5%. Patient gained about 15 lb over the last 3 months. He's been eating pasta more frequently. He only has zero sugar juice and soda. Current medication regimen: Jardiance 10 mg daily Lantus 16 units daily Metformin extended release 2000 mg daily Mounjaro 5 mg weekly Past medication: Invokana had to be switched to Jardiance this year due to insurance. Hypoglycemia symptoms: none reported Hyperglycemia symptoms: none reported Patient saw podiatry within the past few months, and he has a follow up scheduled. Eye exam: [facility]. Patient says he had this appointment since our last visit and has new glasses. No known ophthalmic complications. Microvascular complications: Nephropathy and neuropathy Macrovascular complications: None Hypertension: Treated with losartan 25 mg daily. Hyperlipidemia: treated with simvastatin 40 mg and Vascepa. ROS: Constitutional: No unexplained weight loss, fever, chills, fatigue or night sweats. Eyes: No vision changes Respiratory: No shortness of breath Cardiovascular: No chest pain : Denies urinary frequency, dysuria, bladder discomfort, hematuria, urethral discharge or itching Gastrointestinal: No anorexia, nausea, vomiting or diarrhea. No abdominal pain or blood Neurologic: No numbness or tingling in the extremities. No dizziness or syncope. Endocrine: No cold or heat intolerance. No polyuria or polydipsia. Physical exam: Constitutional: Alert, in no distress. Eyes: Pupils are equal, round and reactive to light. Extraocular muscles intact. Neck: Supple, Full range of motion. No lymphadenopathy. No palpable thyroid masses. Respiratory: Clear to auscultation. Cardiovascular: S1 S2 regular. No murmurs. [facility] Medical History (Updated 03/17/24 @ 12:14 by Carolina Bundy NP) Learning disability Hypertriglyceridemia Abscess Gout Depression Hypothyroidism Proteinuria Type 2 diabetes mellitus with diabetic polyneuropathy Dyslipidemia Essential hypertension Obesity (BMI 30.0-34.9) Type 2 diabetes mellitus with other diabetic kidney complication Surgical History Hx of removal of cyst Family History Father No problems noted. Mother No problems noted. Maternal Grandmother Diabetes Social History Household Members: None Alcohol intake: former Patient Tobacco Use Status: Never used Tobacco Physical Exam Vital Signs: Last Vital Signs Pulse 83 12/10/24 11:24 BP 112/82 12/10/24 11:24 Pulse Ox 98 12/10/24 11:24 Oxygen Delivery Method Room Air 12/10/24 11:24 BMI result Body Mass Index 28.4 Results AMB Hemoglobin A1c AMB Hemoglobin A1c 7.5 % Last Edit by Montserrat Avila RN on 12/10/24 11:45 Results Reviewed Results Reviewed: Laboratory Tests 01/27/23 06/10/24 09/08/24 11:08 10:00 10:30 Creatinine 1.04 Estimated GFR > 60 Triglycerides 97 Cholesterol 116 LDL Cholesterol, Calc 51 HDL Cholesterol 46 TSH 1.35 Urine Creatinine 57.22 Urine Microalbumin 60.0 Microalb/Creat Ratio 104.8 Assessment & Plan Assessment & Plan (1) Type 2 diabetes mellitus with other diabetic kidney complication: Code(s): E11.29 - Type 2 diabetes mellitus with other diabetic kidney complication Category: Medical (2) Proteinuria: Code(s): R80.9 - Proteinuria, unspecified Category: Medical Qualifiers: Proteinuria type: unspecified Qualified Code(s): R80.9 - Proteinuria, unspecified (3) Hypertriglyceridemia: Code(s): E78.1 - Pure hyperglyceridemia Category: Medical (4) Essential hypertension: Code(s): I10 - Essential (primary) hypertension Category: Medical Plan In summary this is a 48-year-old male with controlled type 2 diabetes with microvascular complications. Stop Jardiance 10 mg daily and start Jardiance 25 mg daily. Return to the lab in 10 days to check creatinine. Side effects of Jardiance reviewed. Patient instructed to call if he has any difficulties with the medication. Continue Lantus 16 units every morning, Mounjaro 5 mg every week and Metformin 2000 mg every morning. Continue to monitor blood sugars. CGM discussed previously. Due for microalbumin. Order placed. Check B12 on metformin. Completed form for his staff worker and reviewed instructions for medication and to return in 10 days for labs. They will arrange this. Follow up in 3 months for type 2 diabetes. Orders: Orders AMB Hemoglobin A1c Today E11.29 - Type 2 diabetes mellitus with other diabetic kidney complication Vitamin B12 Today Z91.89 - Other specified personal risk factors, not elsewhere classified Creatinine Today E11.9 - Type 2 diabetes mellitus without complications Medications: New empagliflozin (Jardiance) Replaces Jardiance 10 mg daily. 25 mg PO QAM 90 tabs 1RF Refilled blood-glucose meter (FreeStyle Lite Meter kit) As directed 1 ea 0RF Discontinued empagliflozin (Jardiance) Replaces Invokana (canagliflozin) Discontinued Reason: Doctor's Order 10 mg PO QAM 90 tabs 3RF Patient Instructions: Stop Jardiance 10 mg daily and start Jardiance 25 mg daily. Continue Lantus 16 units every morning, Mounjaro 5 mg every week and Metformin 2000 mg every morning. Decrease carbohydrates in your diet like bread, pasta and rice. Return to the lab in 10 days for labwork at one of the [facility] labs. Coding Level of Care Code Est Pt Level 4 (55967) Complex EM visit Add On G2211 Diagnoses Type 2 diabetes mellitus with other diabetic kidney complication E11.29 Proteinuria, unspecified type R80.9 Proteinuria type: unspecified Hypertriglyceridemia E78.1 Essential hypertension I10
[2024-12-10 11:24] VITALS: BP 112/82; PULSE 83; O2SAT 98; BMI 28.4
[2024-12-10 11:47] LABS: Glucose, Whole Blood 113 mg/dL (60-115)
--- OUTSIDE RECORDS SUMMARY | 2024-12-10 12:04 | XMS_ITS | Clinical Summary ---
Author Organization 175 [facility] Address [address] [place] [address] Phone Care Team Providers Care Industrial Maintenance Mill[employer] Name Role Phone Nathan Hoffman MD Primary Care Provider [phone] Allergies Active Allergy Reactions Criticality Noted Date Comments Penicillins 07/05/2020 Medications acetaminophen (TYLENOL) 500 mg capsule Take by mouth. Activ e allopurinoL (ZYLOPRIM) 300 mg tablet Take 300 mg by mouth daily. Active ascorbic acid, vitamin C, 500 mg capsule Take by mouth. Activ e buPROPion SR (WELLBUTRIN SR) 150 mg 12 hr tablet Take 150 mg by mouth 2 times daily. Active canagliflozin (INVOKANA) 300 mg tablet Take by mouth. Activ e cholecalciferol (VITAMIN D-3) 10 mcg (400 unit) capsule Take by mouth. Activ e cholecalciferol (VITAMIN D-3) 50 mcg (2,000 unit) capsule Take 1 capsule by mouth daily. 1 Active dulaglutide (Trulicity) 0.75 mg/0.5 mL pen injector injection ADMINISTER 0.75 MG UNDER THE SKIN EVERY WEEK 2 Active ibuprofen (ADVIL,MOTRIN) 800 mg tablet Take 800 mg by mouth every 8 hours as needed. Active levothyroxine (SYNTHROID, LEVOTHROID) 100 mcg tablet Take 100 mcg by mouth daily. Active loratadine (CLARITIN) 10 mg tablet Take 10 mg by mouth daily. 1 Active loratadine 10 mg capsule Take by mouth. Activ e losartan (COZAAR) 50 mg tablet Take 50 mg by mouth daily. Active metFORMIN XR (GLUCOPHAGE-XR) 500 mg 24 hr tablet TAKE 4 TABLETS BY MOUTH DAILY 1 Active metFORMIN (GLUCOPHAGE) 1,000 mg tablet Take 2,000 mg by mouth 2 times daily (with meals). Active simvastatin (ZOCOR) 40 mg tablet Take 40 mg by mouth at bedtime. Active pen needle, diabetic (BD CORI 2ND GEN PEN NEEDLE MISC) USE 1 DAILY 2 Active guaifenesin/dextr omethorphan (DEXTROMETHORPHAN -GUAIFENESIN ORAL) Take by mouth. Activ e exenatide microspheres 2 mg/0.85 mL auto-injector injection Inject into the skin. Active FREESTYLE LANCETS MISC DIRECTED TO TEST BLOOD SUGAR THREE TIMES DAILY 2 Active blood sugar diagnostic (FreeStyle Lite Strips) test strip USE DIRECTED TO TEST THREE TIMES DAILY 2 Active insulin glargine,hum.rec. anlog (LANTUS SOLOSTAR U-100 INSULIN SUBQ) Inject into the skin. Active Encounters Date Type Department Care Team Description 09/21/2024 1:00 PM EST Office Visit Orthopedic Surgery - [address] [address] Josh Diaz, DPM Type 2 diabetes mellitus without complication, without long-term current use of insulin ([facility] V24, CMS/[facility] V28) (Primary Dx) from Last 3 Months Medical History Medical History Date Comments Hyperlipidemia DX:Hyperlipidemi a Essential hypertension DX:Essent ial hypertension Diabetes mellitus type 2, co ntrolled, with complications (CMS/HCC V24, CMS/HCC V28) DX:Diabetes mellitus type 2, controlled, with complications ([facility]) Depressive disorder DX:Depressiv e disorder Hypothyroidism DX:Hypothyroidis m Intellectual disability DX:Intel lectual disability Social History Tobacco Use Types Packs/Day Years Used Date Smoking Tobacco: Never Smokeless Tobacco: Never Alcohol Use Standard Drinks/Week Comments Yes 0 (1 standard drink = 0.6 oz pur e alcohol) Sex and Gender Information Value Date Recorded Sex Assigned at Not on file Legal Sex Male 6:54 PM EST Gender Identity Not on file Sexual Orientation Not on file Obstetrics History Last Filed Vital Signs Vital Sign Reading Time Taken Comments Blood Pressure - - Pulse - - Temperature - - Respiratory Rate - - Oxygen Saturation - - Inhaled Oxygen Concentration - - Weight 107 kg (235 lb) 09/21/2024 1:16 PM EST Height 190.5 cm (6' 3 ) 09/21/2024 1:16 PM EST Body Mass Index 29.37 09/21/2024 1:16 PM EST Plan of Treatment Upcoming Encounters Date Type Department Care Team (Late st Contact Info) Description 01/19/2025 1:00 PM EDT Office Visit Orthopedic Surgery - [place] [address] [phone] Josh Diaz, DPLudwin [address] [address] Health Maintenance Due Date Last Done Comments Diabetes: Annual GFR (Glomerular Filtration Rate) 1974 Diabetes: Annual Foot Exam 1984 Diabetes: Annual Retina Eye Exam 1984 DTaP,Tdap,and Td Vaccines (1 - Tdap) 1993 Hepatitis B Vaccines (1 of 3 - 19+ 3-dose series) 1993 Pneumococcal Vaccine: 50+ Years (2 of 2 - PCV) 06/19/2018 06/19/2017 Pneumococcal Vaccine: Pediatrics (0 to 5 Years) and At-Risk Patients (6 to 64 Years) (2 of 2 - PCV) 06/19/2018 06/19/2017 Cholesterol Screening (Lipid Panel) 07/20/2022 Colorectal Cancer Screening: Colonoscopy 07/20/2022 Depression Screening 07/20/2022 HIV Screening 07/20/2022 Hepatitis C Screening 07/20/2022 Social Influencers of Health Screening 07/20/2022 Zoster Vaccines (1 of 2) 2024 Diabetes: Annual Urine Albumin-Creatinine Ratio (uACR) 09/21/2024 Diabetes: Blood Sugar Control Test (HGBA1C) 09/21/2024 COVID-19 Vaccine Completed 05/26/2024, , 07/19/2021, Additional history exists Influenza Vaccine Completed 05/26/2024, , 07/25/2016, Additional history exists HIB Vaccines Aged Out No longer eligi [...] patient's age to complete this topic Meningococcal B Vaccine Aged Out No l onger eligible based on patient's age to complete this topic RSV Immunization Patients Under 20 months Aged Out No longer eligible based on patient's age to complete this topic Varicella Vaccines Aged Out No longer eligible based on patient's age to complete this topic Insurance [place]ICA[place] - [place] Care Teams Industrial Maintenance [employer] Relationship Specialty Start Date End Date Nathan Hoffman MD [address] [place] [address] [place] [address] PCP - General 08/21/07
== END 2024-12-10 12:05 | disposition home or self-care (01) ==
LOC: HO.ENCR 11:13
PROVIDERS: PCP Family Medicine; Visit Provider Physician Assistant Medical
DX: E11.29 Type 2 diabetes mellitus with other diabetic kidney complication (principal); R80.9 Proteinuria, unspecified; E78.1 Pure hyperglyceridemia; I10 Essential (primary) hypertension

== ENCOUNTER → 2024-12-10 11:12 | Outpatient (BNVA) | payer MEDICAID, SELFPAY | PROVIDERS: PCP Family Medicine; Visit Provider Physician Assistant Medical | DX: E11.29 Type 2 diabetes mellitus with other diabetic kidney complication (principal); R80.9 Proteinuria, unspecified; E78.1 Pure hyperglyceridemia; I10 Essential (primary) hypertension | CPT/HCPCS: 82947; 83036; 99212 ==

== ENCOUNTER 2024-12-21 11:55 | Outpatient (REF) | payer MEDICAID, SELFPAY ==
--- OUTSIDE RECORDS SUMMARY | 2024-12-21 13:29 | XMS_ITS | Clinical Summary ---
Author Organization 175 [facility] Address [address] [place] [address] Phone Care Team Providers Care Construction Safety Consultant Name Role Phone Nathan Hoffman MD Primary Care Provider [phone] Allergies Active Allergy Reactions Criticality Noted Date [...] DX:Diabetes mellitus type 2, controlled, with complications ([facility]) Depressive disorder DX:Depressiv e disorder Hypothyroidism DX:Hypothyroidis [...] 1:00 PM EDT Office Visit Orthopedic Surgery [facility] [address] [place] [phone] Josh Diaz DPLudwin [address] [facility] [address] [place] [address] Health Maintenance Due Date Last Done Comments [...] topic Insurance MEDICA[place] - [place] Care Teams Construction Safety Consultant Relationship Specialty Start Date End Date Nathan Hoffman MD [address] [place] [address] [place] [address] PCP - General 08/21/07
--- OUTSIDE RECORDS SUMMARY | 2024-12-21 13:29 | XMS_ITS | Data Portability ---
Author Organization [place] - On license of [facility] Address [address] [place] [address] Care Team Providers Care Return To Vendor Name Role Phone YANIRA LARIOS Primary Care Provider [phone] Assessment Encounter Date Assessment Date Assessment LastModified by Organization Details LastModified Time 10/28/2020 10/28/2020 Overview/History : This is a 45-year-old patient who is new to [facility] with a past medical history significant for [...] after care of this patient according to [facility]'s infection prevention protocols. The patient under our [...] test using a shared medical decision-making model. Not available 10/28/2020 14:05:46 Plan of Treatment Reminders Order Date Submit Date Provider Last Modified By Organization Details Last Modified Time Details Appointments None recorded. Lab SARS CoV 2 RNA (COVID-19), QL, certified midwife-PCR, respiratory specimen 2020 021 [id number] [facility] (Centralized Electronic Ordering - All Locations), Patient Can Go To The Location Of Their Choice, [id number] 10:51:37 Referral None recorded. Procedures None recorded. Surgeries None recorded. Imaging None recorded. Medication Orders None recorded. Patient TargetsNo targets recorded. Patient Instructions Encounter Date Encounter Id Patient Instructions Last Modified By Organization Details Last Modified Time 10/28/2020 [id number] Pre printed instructions provided. Not available 10/28/2020 14:02:11 You will be advi sed of your COVID-19 results as they become available. [facility] will contact you to let you know [...] to your local emergency facility: Notify the soda fountain operator that you are seeking care for someone who has or may have COVID-19. Not available 10/28/2020 13:37:17 Reason for Referral None Reported. Results Created Date Observation Date Name Description Value Unit Range Abnormal Flag Note LastModifiedBy Organization Detail LastModifiedTime 10/29/19 21 10/29/2020 covid -19 (nove l coron aviru s) PCR covid-19 PCR result (neg) NEGAT DENA 2019- novel Coron aviru s (2018 -nCoV ) not detec dillon by real- time RT-PC R. Note: If clini roxana suspi cion for COVID -19 is high, citlaly nue to maint ain preca ution s and consi vicente repea t testi ng. Resul t repor dillon to the [facility]. To preve nt error s in diagn osis, test resul ts shoul d be inter prete d in the fausto xt of clini orxana findi ngs and other labor atory data. Rare polym orphi sms exist that could lead to false -nega tive or false -posi tive resul ts. If resul ts obtai erik do not match the clini roxana findi ngs, addit ional testi viktoria forde d be consi dered . This test has been autho rized by the FDA under an Emerg ency Use Autho rizat ion (EUA) for use by autho rized labor atori es. Testi ng perfo rmed by real time PCR utili [facility] SARS- CoV-2 test. Not Available [facility] (Centralized Electronic Ordering - All Locations) Patient Can Go To The Location Of Their Choice, [id number] 10/29/2020 19:13:08 10/29/1910/29/2020 covid -19 (nove l coron aviru s) PCR covid-19 PCR specimen source NASAL Not Available [facility] (Centralized Electronic Ordering - All Locations) Patient Can Go To The Location Of Their Choice, [id number] 10/29/2020 19:13:08 Result Notes None recorded. Procedures Surgical History Date Name Laterality Status Provider Name and Address Organization Details Recorded Time 10/29/19 Medication Review completed Lizzy Cunningham NP [address], [place], [address], [place] [facility] 10/28/2020 13:39:10 Imaging Results None recorded. Procedure Notes None recorded. Medical Equipment None Reported. Allergies Allergen ID Allergen Name Allergen Category Reaction Reaction Severity Criticality Documentation Date Start Date Code Code System Note Provider Name and Address Organization Details Recorded Time 084923 Product containin g penicilli n (product) medicatio n Not available Not available Not available 10/28/2020 04531 8001 SNOMED Lizzy Cunningham NP [address] [place], [address], [place] [facility] 14:06:06 Medications Name Sig Start Date Stop [...] 2nd Gen Pen Needle 32 gauge x 32 USE DIRECTED ONCE DAILY active Not Available Not Available N ot Available Vitals Date Recorded Respiratory rate Heart rate Oxygen saturation Oxygen saturation in Arterial blood by Pulse oximetry Body temperature Systolic blood pressure Diastolic blood pressure Provider Name and Address Organization Details Last Updated DateTime 1 24 /min 96 /min 97 % 97 % 98.6 [degF] 116 mm[Hg] 72 mm[Hg] Not Available [facility] 13:36:27 Social History None recorded. Functional Status None recorded. Mental Status None recorded. Family History Relationship Description Onset Age of this Age Resolved Age Notes LastModified by Organization Details LastModified Time Maternal Grandmother Diabetes mellitus [id number] Not available 2020 13:35:28 Medical History Condition Response Diabetes Y Coronary Artery Disease N Cancer N Stroke N COPD N Depression Y Asthma N High Cholesterol Y Pulmonary Embolism N Hypertension Y Kidney Disease N Past Encounters Encounter ID Performer Location Encounter Start Date Encounter Closed Date Diagnosis/Indication Diagnosis SNOMED-CT Code Diagnosis ICD10 Code Diagnosis Note [id number] Lizzy Cunningham NP [facility] [address] [place] [address] 10/28/2020 13:27:55 10/30/2020 01:26:00 Exposure to communicable disease 994083857 Z20.9 Type 2 jeanie betes mellitus 90475736 E11.9 Health Concerns Section Related Observation LastModified by Organization Detai ls LastModified Time None Recorded Concern Status LastModified by Organization Details LastModified Time None Recorded Advance Directives Directive None Recorded Payers Encounter Date Sequence Insurance Name Policy Number Policy Smith Covered Member ID Smith Member ID Guarantor Name 10/28/2020 1 [place] [facility] Xavi Corona [id number] Xavi Corona Notes Date Note Type Note Provider Name [...] of taste/smell. Lizzy Cunningham NP [address] [place], [address], [place] [facility] 10/28/2020 14:06:50
[2024-12-21 14:01] LABS: Estimated Glomerular Filt Rate > 60
[2024-12-21 14:29] LABS: Vitamin B12 238 pg/mL (200-900)
[2024-12-21 14:36] LABS: Creatinine Urine 149.57 mg/dL
== END 2024-12-21 11:56 | disposition home or self-care (01) ==
LOC: HO.10HDL 11:55
PROVIDERS: Visit Provider Physician Assistant Medical
DX: E11.9 Type 2 diabetes mellitus without complications (principal); Z91.89 Other specified personal risk factors, not elsewhere classified
CPT/HCPCS: 36415; 82043; 82565; 82570; 82607

== ENCOUNTER 2025-01-20 11:39 | Outpatient (REF) | payer MEDICAID, SELFPAY ==
[2025-01-20 13:25] LABS: Alanine Aminotransferase 39 U/L (0-40); Albumin Level 4.6 g/dL (3.5-5.0); Alkaline Phosphatase 84 U/L (39-117); Anion Gap 10 (12-20); Aspartate Amino Transferase 29 U/L (5-37); Bilirubin Direct < 0.2 mg/dL (0.0-0.5); Bilirubin Total 0.2 mg/dL (0.0-1.0); Blood Urea Nitrogen 7 mg/dL (9-16); Carbon Dioxide 26 mmol/L (22-29); Chloride 109 mmol/L (96-108); Estimated Glomerular Filt Rate > 60; Potassium 3.9 mmol/L (3.3-5.1); Sodium 141 mmol/L (135-145); Total Protein 7.2 g/dL (6.5-8.0)
[2025-01-20 13:44] LABS: Free T4 (Free Thyroxine) 1.03 ng/dL (0.71-1.85); Thyroid Stimulating Hormone 2.14 uIU/mL (0.32-4.0)
--- OUTSIDE RECORDS SUMMARY | 2025-01-20 13:55 | XMS_ITS | Data Portability ---
Author Organization [place] - [facility] Address [address] [place] [phone] Care Team Providers Care Switchboard Inspector Name Role Phone YANIRA LARIOS Primary Care Provider [phone] Assessment Encounter Date Assessment Date Assessment LastModified by Organization Details LastModified Time 10/28/2020 10/28/2020 Overview/History : This is a 45-year-old patient who is new to [facility] with a past medical history significant for [...] after care of this patient according to [facility]'s infection prevention protocols. The patient under our [...] test using a shared medical decision-making model. [email or web address] Not available 10/28/2020 14:05:46 Plan of Treatment Reminders Order Date Submit Date Provider Last Modified By Organization Details Last Modified Time Details Appointments None recorded. Lab SARS CoV 2 RNA (COVID-19), QL, children's librarian-PCR, respiratory specimen 2020 021 [email or web address] [facility] (Centralized Electronic Ordering - All Locations), Patient Can Go To The Location Of Their Choice, [id number] 10:51:37 Referral None recorded. Procedures None recorded. Surgeries None recorded. Imaging None recorded. Medication Orders None recorded. Patient TargetsNo targets recorded. Patient Instructions Encounter Date Encounter Id Patient Instructions Last Modified By Organization Details Last Modified Time 10/28/2020 [id number] Pre printed instructions provided. [email or web address] Not available 10/28/2020 14:02:11 You will be advi sed of your COVID-19 results as they become available. [facility] will contact you to let you know [...] to your local emergency facility: Notify the acid purification equipment operator that you are seeking care for someone who has or may have COVID-19. [email or web address] Not available 10/28/2020 13:37:17 Reason for Referral [...] ng. Resul t repor dillon to the [facility]. To preve nt error s in diagn [...] perfo rmed by real time PCR utili [employer] SARS- CoV-2 test. Not Available [facility] (Centralized Electronic Ordering - All Locations) Patient Can Go To The Location Of Their Choice, [id number] 10/29/2020 19:13:08 10/29/1910/29/2020 covid -19 (nove l coron aviru s) PCR covid-19 PCR specimen source NASAL Not Available [facility] (Centralized Electronic Ordering - All Locations) Patient Can Go To The Location Of Their Choice, [id number] 10/29/2020 19:13:08 Result Notes None recorded. Procedures Surgical History Date Name Laterality Status Provider Name and Address Organization Details Recorded Time 10/29/19 Medication Review completed Lizzy Cunningham NP [address], [place], [address], [place] [facility] 10/28/2020 13:39:10 Imaging Results None recorded. Procedure Notes None recorded. Medical Equipment None Reported. Allergies Allergen ID Allergen Name Allergen Category Reaction Reaction Severity Criticality Documentation Date Start Date Code Code System Note Provider Name and Address Organization Details Recorded Time 730725 Product containin g penicilli n (product) medicatio n Not available Not available Not available 10/28/2020 15554 8001 SNOMED Lizzy Cunningham NP [address] [place], [address], [place] [facility] 14:06:06 Medications Name Sig Start Date [...] Details LastModified Time Maternal Grandmother Diabetes mellitus [email or web address] Not available 2020 13:35:28 Medical History Condition Response Diabetes Y Coronary Artery Disease N Cancer N Stroke N COPD N Depression Y Asthma N High Cholesterol Y Pulmonary Embolism N Hypertension Y Kidney Disease N Past Encounters Encounter ID Performer Location Encounter Start Date Encounter Closed Date Diagnosis/Indication Diagnosis SNOMED-CT Code Diagnosis ICD10 Code Diagnosis Note [id number] Lizzy Cunningham NP [facility] [address] [place] [address] 10/28/2020 13:27:55 10/30/2020 01:26:00 Exposure to communicable disease 702001152 Z20.9 Type 2 jeanie betes mellitus 82505482 E11.9 Health Concerns Section Related Observation LastModified by Organization Detai ls LastModified Time None Recorded Concern Status LastModified by Organization Details LastModified Time None Recorded Advance Directives Directive None Recorded Payers Insurance Date Sequence Insurance Name Policy Number Policy Smith Covered Member ID Smith Member ID Guarantor Name 10/27/2020 1 [place] [facility] Xavi Corona [id number] Xavi Corona 10/27/2020 1 *SELF PAY* Xavi Corona [id number] Xavi Corona Notes Date Note Type Note [...] taste/smell. Lizzy Cunningham NP [address], [place], [address], [place] [facility] 10/28/2020 14:06:50
[2025-01-27 16:33] LABS: FIB-ALT 26 U/L (9-46); FIB-Alpha-2-Macroglobulin 189 mg/dL (106-279); FIB-Apolipoprotein A1 152 mg/dL (94-176); FIB-GGT 104 U/L (3-95); FIB-Haptoglobin 174 mg/dL (43-212); FIB-Total Bilirubin 0.2 mg/dL (0.2-1.2); Liver Fibrosis Score 0.15; Liver Fibrosis Stage F0; Nec Inflam Act Grade A0
== END 2025-01-20 11:40 | disposition home or self-care (01) ==
LOC: HO.10HDL 11:39
PROVIDERS: Visit Provider Family Medicine
DX: E78.00 Pure hypercholesterolemia, unspecified (principal); I10 Essential (primary) hypertension; E03.9 Hypothyroidism, unspecified; K75.81 Nonalcoholic steatohepatitis (NASH)
CPT/HCPCS: 36415; 80051; 80076; 81596; 82550; 82565; 84439; 84443; 84520

== ENCOUNTER 2025-03-08 11:37 | Outpatient (AMB) | payer MEDICAID, SELFPAY ==
--- NOTE | 2025-03-08 11:39 | A.OFFVIS_ITS ---
Vital Signs 03/08/25 11:42 Height 6 ft 3 in Weight 216 lb 0.848 oz BMI 27.0 BP 90/64 Blood Pressure Location Rt brachial Position Sitting Pulse 102 H Pulse Source Pulse Oximeter Pulse Oximetry (%) 97 Oxygen Delivery Method Room Air Intake Visit Reasons: Type II diabetes Intake Note: Patient present today to follow up on Type 2 Diabetes Mellitus. Last Diabetic Eye exam: 10/28/2024 [facility] Last Podiatry Visit: Does not see a Teacher Vocational Training Random Glucose: 136 mg/dl HgA1C: 7.0% 03/08/2025 Complex Human Resources Manager Required: No Accompanied by: Self / Same As Patient Allergies Penicillins (PENICILLINS) Allergy (Unknown, Verified 03/08/25 11:42) RASH/BREATHING DIFFICULTY HPI Comments Details: This is a 49-year-old male with a past medical history of type 2 diabetes with nephropathy, learning disability hypothyroidism, depression, dyslipidemia, obesity and hypertension presenting for diabetes management. Hemoglobin a1c is today is 7% down from 7.5%. Glucometer 30 day average 137 He's cut back on pasta. He only has zero sugar juice and soda. Current medication regimen: Jardiance 25 mg daily Lantus 16 units daily Metformin extended release 2000 mg daily Mounjaro 5 mg weekly Past medication: Invokana had to be switched to Jardiance this year due to insurance. Hypoglycemia symptoms: none reported Hyperglycemia symptoms: none reported Followed by podiatry. Eye exam: [facility] 10/28/24. No known retinopathy or edema, but it is noted that he refuses dilation drops which may limit the exam. Microvascular complications: Nephropathy and neuropathy Macrovascular complications: None Hypertension: Treated with losartan 25 mg daily. BP soft today, but it fluctuates historically. Denies dizziness. Hyperlipidemia: treated with simvastatin 40 mg and Vascepa. ROS: Constitutional: No unexplained weight loss, fever, chills, fatigue or night sweats. Eyes: No vision changes Respiratory: No shortness of breath Cardiovascular: No chest pain : Denies urinary frequency, dysuria, bladder discomfort, hematuria, urethral discharge or itching Gastrointestinal: No anorexia, nausea, vomiting or diarrhea. No abdominal pain or blood Neurologic: No numbness or tingling in the extremities. No dizziness or syncope. Endocrine: No cold or heat intolerance. No polyuria or polydipsia. Physical exam: Constitutional: Alert, in no distress. Eyes: Pupils are equal, round and reactive to light. Extraocular muscles intact. Neck: Supple, Full range of motion. No lymphadenopathy. No palpable thyroid masses. Respiratory: Clear to auscultation. Cardiovascular: S1 S2 regular. No murmurs. [facility] Medical History (Updated 03/17/24 @ 12:14 by Carolina Bundy NP) Learning disability Hypertriglyceridemia Abscess Gout Depression Hypothyroidism Proteinuria Type 2 diabetes mellitus with diabetic polyneuropathy Dyslipidemia Essential hypertension Obesity (BMI 30.0-34.9) Type 2 diabetes mellitus with other diabetic kidney complication Surgical History Hx of removal of cyst Family History Father No problems noted. Mother No problems noted. Maternal Grandmother Diabetes Social History Household Members: None Alcohol intake: former Patient Tobacco Use Status: Never used Tobacco Physical Exam Vital Signs: Last Vital Signs Pulse 102 H 03/08/25 11:42 BP 90/64 03/08/25 11:42 Pulse Ox 97 03/08/25 11:42 Oxygen Delivery Method Room Air 03/08/25 11:42 BMI result Body Mass Index 27.0 Results AMB Hemoglobin A1c AMB Hemoglobin A1c 7.0 % Last Edit by DOMINIC Ramirez on 03/08/25 11:57 Results Reviewed Results Reviewed: Laboratory Last Values Glucose (Clinic) 136 mg/dL (60-115) H 03/08/25 11:47 Laboratory Tests 01/11/22 06/10/24 12/21/24 11:17 10:00 12:00 Creatinine Estimated GFR AST ALT LDL Cholesterol Direct 87 Cholesterol 116 LDL Cholesterol, Calc 51 HDL Cholesterol 46 TSH Urine Creatinine 149.57 Urine Microalbumin 208.0 Microalb/Creat Ratio 139.0 H 01/20/25 11:48 Creatinine 1.04 Estimated GFR > 60 AST 29 ALT 39 LDL Cholesterol Direct Cholesterol LDL Cholesterol, Calc HDL Cholesterol TSH 2.14 Urine Creatinine Urine Microalbumin Microalb/Creat Ratio Assessment & Plan Assessment & Plan (1) Type 2 diabetes mellitus with other diabetic kidney complication: Code(s): E11.29 - Type 2 diabetes mellitus with other diabetic kidney complication Category: Medical (2) Proteinuria: Code(s): R80.9 - Proteinuria, unspecified Category: Medical Qualifiers: Proteinuria type: unspecified Qualified Code(s): R80.9 - Proteinuria, unspecified (3) Hypertriglyceridemia: Code(s): E78.1 - Pure hyperglyceridemia Category: Medical Plan In summary this is a 48-year-old male with controlled type 2 diabetes with microvascular complications. Continue jardiance 25 mg daily, Lantus 16 units every morning, Mounjaro 5 mg every week and Metformin 2000 mg every morning. Continue to monitor blood sugars. We discussed CGM again today, but he declined. Reviewed the written instructions for hypoglycemia. Glucose tablets sent to the pharmacy. Continue Arb for renal protection. Continue simvastatin and Vascepa. Follow up in 3 months for type 2 diabetes. Orders: Orders AMB Hemoglobin A1c Today E11.29 - Type 2 diabetes mellitus with other diabetic kidney complication Medications: New glucose (Dex4 Glucose Quick Dissolve) until symptoms of low blood sugar are controlled 16 grams (4 x 4 gram) PO Q15M PRN 20 tabs 3RF hypoglycemia Refilled insulin glargine (Lantus Solostar U-100 Insulin) 16 units (0.16 mL) subcut DAILY 15 mL 5RF E11.29 - Type 2 diabetes mellitus with other diabetic kidney complication tirzepatide (Mounjaro) Replaces Mounjaro 2.5mg 5 mg (0.5 mL) subcut QWEEK 2 mL 5RF lancets (FreeStyle Lancets) TEST BLOOD SUGAR 3X DAILY DIRECTED 200 ea 5RF E11.29 - Type 2 diabetes mellitus with other diabetic kidney complication Patient Instructions: Continue Jardiance 25 mg daily, Lantus 16 units every morning, Mounjaro 5 mg every week and Metformin 2000 mg every morning. If you experience low blood sugar (blood sugar under 70), treat this by eating a chewable fruit candy like skittles or jelly beans (about 8 pieces), 4 ounces (1/2 cup) of fruit juice (not diet), 1 tablespoon of honey or 4 glucose tablets. If your blood sugar is under 55, take double the amount of one of the above. Recheck your blood sugar in 15 minutes. Coding Level of Care Code Est Pt Level 4 (72326) Complex EM visit Add On G2211 Diagnoses Type 2 diabetes mellitus with other diabetic kidney complication E11.29 Proteinuria, unspecified type R80.9 Proteinuria type: unspecified Hypertriglyceridemia E78.1
[2025-03-08 11:42] VITALS: BP 90/64; PULSE 102; O2SAT 97; BMI 27.0
[2025-03-08 11:51] LABS: Glucose, Whole Blood 136 mg/dL (60-115)
--- OUTSIDE RECORDS SUMMARY | 2025-03-08 12:52 | XMS_ITS | Clinical Summary ---
Author Organization [facility] Address [address] [place] [address] Phone Care Team Providers Care Tunnel Form Placing Supervisor Name Role Phone Nathan Hoffman MD Primary Care Provider [phone] Allergies Active Allergy Reactions Criticality Noted Date Comments Penicillins 07/05/2020 Medications ascorbic acid, vitamin C, 500 mg capsule [...] INSULIN SUBQ) Inject into the skin. Active cyanocobalamin (VITAMIN B-12) 500 mcg tablet Take 1 tablet (500 mcg total) by mouth 1 (one) time each day. 5 Active Jardiance 10 mg tablet TAKE 1 TABLET BY MOUTH EVERY MORNING. REPLACES INVOKANA 5 Active Mounjaro 5 mg/0.5 mL injection ADMINISTER 5 MG UNDER THE SKIN EVERY WEEK. REPLACES MOUNJARO 2.5 MG 5 Active Encounters Date Type Department Care Team Description 01/19/2025 1:00 PM EDT Office Visit Orthopedic Surgery - [address] [address] Josh Diaz, DPM Type 2 diabetes mellitus without complication, without long-term current use of insulin ([facility] V24, [facility] V28) (Primary Dx) from Last 3 Months Medical History Medical History Date Comments Hyperlipidemia DX:Hyperlipidemi a Essential hypertension DX:Essent ial hypertension Diabetes mellitus type 2, co ntrolled, with complications (CMS/HCC V24, CMS/[facility] V28) DX:Diabetes mellitus type 2, controlled, with complications ([facility]) Depressive disorder DX:Depressiv e disorder Hypothyroidism DX:Hypothyroidis [...] Care Team (Late st Contact Info) Description 05/24/2025 1:00 PM EDT Office Visit Orthopedic Surgery - [place] [address] [phone] Josh Diaz, DPM [address] [address] Health Maintenance Due Date Last Done Comments [...] Panel) 07/20/2022 Colorectal Cancer Screening: Colonoscopy 07/20/2022 HIV Screening 07/20/2022 Hepatitis C Screening 07/20/2022 Social Influencers of Health Screening 07/20/2022 Zoster Vaccines (1 of 2) 2024 Depression Screening 08/18/2024 Diabetes: Annual Urine Albumin-Creatinine Ratio (uACR) 01/19/2025 Diabetes: Blood Sugar Control Test (HGBA1C) 01/19/2025 Influenza Vaccine (#1) 2025 , 08/15/2023, 07/25/2016, Additional history exists COVID-19 Vaccine Completed 05/26/2024, , 07/19/2021, Additional history exists HIB Vaccines Aged Out [...] topic Insurance MEDICA[place] - [place] Care Teams Tunnel Form Placing Supervisor Relationship Specialty Start Date End Date Nathan Hoffman MD [address] [place] [address] [place] [address] PCP - General 08/21/07
--- OUTSIDE RECORDS SUMMARY | 2025-03-08 12:52 | XMS_ITS | Data Portability ---
Author Organization [place] - [facility] [place] [facility] Address [address] [place] [address] Care Team Providers Care Automotive Service Cashier Name Role Phone RIC YANIRA Primary Care Provider Assessment Encounter Date Assessment Date Assessment LastModified by Organization Details LastModified Time 10/28/2020 10/28/2020 Overview/History : This is a 45-year-old patient who is new to [facility] with a past medical history significant for [...] accessed patient records on the [employer]. This information was pertinent in my medical decision making today. Proper Personal Protective Equipment (PPE), including gloves, eye protection, N95 mask, gown, and shoe covers were donned and doffed appropriately and all equipment cleaned using approved technique with germicidal disposable wipes prior to and after care of this patient according to [facility]'s infection prevention protocols. The patient under our [...] test using a shared medical decision-making model. [email or web address] Not available 10/28/2020 14:05:46 Plan of Treatment Reminders Order Date Submit Date Provider Last Modified By Organization Details Last Modified Time Details Appointments None recorded. Lab SARS CoV 2 RNA (COVID-19), QL, product introduction manager-PCR, respiratory specimen 2020 021 [email or web address] [facility] (Centralized Electronic Ordering - All Locations), Patient Can Go To The Location Of Their Choice, [id number] 10:51:37 Referral None recorded. Procedures None recorded. Surgeries None recorded. Imaging None recorded. Medication Orders None recorded. Patient TargetsNo targets recorded. Patient Instructions Encounter Date Encounter Id Patient Instructions Last Modified By Organization Details Last Modified Time 10/28/2020 [id number] Pre printed instructions provided. [email or web address] Not available 10/28/2020 14:02:11 You will be advi sed of your COVID-19 results as they become available. A [facility] software team leader will contact you to let you know [...] of Coronavirus What you need to know Anyone can have mild to severe symptoms. Older adults and people who have severe underlying medical conditions like heart or lung disease or diabetes seem to be at higher risk for developing more serious complications from COVID-19 illness. Watch for symptoms People with COVID-19 have had a wide range of symptoms reported ranging from mild symptoms to severe illness. Symptoms may appear 2-14 days after exposure to the virus. People with these symptoms may have COVID-19: Fever or chills Cough Shortness of breath or difficulty breathing Fatigue Muscle or body aches Headache New loss of taste or smell Sore throat Congestion or runny nose Nausea or vomiting Diarrhea This list does not include all possible symptoms. The CDC will continue to update this list as we learn more about COVID-19. When to Seek Emergency Medical Attention Look for emergency warning signs* for COVID-19. If someone is showing any of these signs, seek emergency medical care immediately Trouble breathing Persistent pain or pressure in the chest New confusion Inability to wake or stay awake Bluish lips or face *This list does not include all possible symptoms. Please call your medical provider for any other symptoms that are severe or concerning to you. Call 911 or call ahead to your local emergency facility: Notify the melt house drag operator that you are seeking care for someone who has or may have COVID-19. [email or web address] Not available 10/28/2020 13:37:17 Reason for Referral [...] Resul t repor dillon to the [facility]. To preve nt error s in diagn [...] FDA under an Emerg ency Use Autho quintin ion (EUA) for use by autho rized labor dev gomez. Testi ng perfo rmed by real time PCR utili [facility] KRISTYN [employer] SARS- CoV-2 test. Not Available [facility] (Centralized Electronic Ordering - All Locations) Patient Can Go To The Location Of Their Choice, [id number] 10/29/2020 19:13:08 10/29/19 21 10/29/2020 covid -19 (nove l coron aviru s) PCR covid-19 PCR specimen source NASAL Not Available [facility] (Centralized Electronic Ordering - All Locations) Patient Can Go To The Location Of Their Choice, [id number] 10/29/2020 19:13:08 Result Notes None recorded. Procedures Surgical History Date Name Laterality Status Provider Name and Address Organization Details Recorded Time 10/29/19 Medication Review completed Lizzy Cunningham NP [address], [place], [address], [place] [facility] 10/28/2020 13:39:10 Imaging Results None recorded. Procedure Notes None recorded. Medical Equipment None Reported. Allergies Allergen ID Allergen Name Allergen Category Reaction Reaction Severity Criticality Documentation Date Start Date Code Code System Note Provider Name and Address Organization Details Recorded Time 262785 Product containin g penicilli n (product) medicatio n Not available Not available Not available 10/28/2020 76925 8001 SNOMED Lizzy Cunningham NP [address] [place], [address], [place] [facility] 14:06:06 Medications Name Sig Start Date Stop [...] 2nd Gen Pen Needle 32 gauge x 5/32 USE DIRECTED ONCE DAILY active Not Available Not Available N ot Available Vitals Date Recorded Respiratory rate Heart rate Oxygen saturation Oxygen saturation in Arterial blood by Pulse oximetry Body temperature Systolic And Diastolic Provider Name and Address Organization Details Last Updated DateTime 1 24 /min 96 /min 97 % 97 % 98.6 [degF] 116/72 mm[Hg] Not Available [facility] 13:36:27 Social History None recorded. Functional Status None recorded. Mental Status None recorded. Family History Relationship Description Onset Age of this Age Resolved Age Notes LastModified by Organization Details LastModified Time Maternal Grandmother Diabetes mellitus Not available 2020 13:35:28 Medical History Condition Response Diabetes Y Coronary Artery Disease N High Cholesterol Y Pulmonary Embolism N Cancer N Hypertension Y Stroke N Asthma N COPD N Depression Y Kidney Disease N Past Encounters Encounter ID Performer Location Encounter Start Date Encounter Closed Date Diagnosis/Indication Diagnosis SNOMED-CT Code Diagnosis ICD10 Code Diagnosis Note [id number] Lizzy Cunningham NP [facility] [address] [place] [address] 10/28/2020 13:27:55 10/30/2020 01:26:00 Exposure to communicable disease 790148340 Z20.9 Type 2 jeanie betes mellitus 64046486 E11.9 Health Concerns Section Related Observation LastModified by Organization Detai ls LastModified Time None Recorded Concern Status LastModified by Organization Details LastModified Time None Recorded Advance Directives Directive None Recorded Payers Insurance Date Sequence Insurance Name Policy Number Policy Smith Covered Member ID Smith Member ID Guarantor Name 10/27/2020 1 [place] [facility] Xavi Corona [id number] Xavi Corona 10/27/2020 1 *SELF PAY* Xavi Corona [id number] Xavi Corona Notes Date Note Type Note [...] sense of taste/smell. Lizzy Cunningham NP [address], [place], [address], [place] [facility] 10/28/2020 14:06:50
== END 2025-03-08 12:06 | disposition home or self-care (01) ==
LOC: HO.ENCR 11:37
PROVIDERS: PCP Family Medicine; Visit Provider Physician Assistant Medical
DX: E11.29 Type 2 diabetes mellitus with other diabetic kidney complication (principal); R80.9 Proteinuria, unspecified; E78.1 Pure hyperglyceridemia

== ENCOUNTER → 2025-03-08 11:37 | Outpatient (BNVA) | payer MEDICAID, SELFPAY | PROVIDERS: PCP Family Medicine; Visit Provider Physician Assistant Medical | DX: E11.29 Type 2 diabetes mellitus with other diabetic kidney complication (principal); R80.9 Proteinuria, unspecified; E78.1 Pure hyperglyceridemia | CPT/HCPCS: 82947; 83036; 99212 ==

== ENCOUNTER 2025-05-11 11:49 | Outpatient (AMB) | payer OTHER, SELFPAY ==
--- NOTE | 2025-05-11 11:50 | MHC.PC.OV ---
Vital Signs 05/11/25 12:08 Height 6 ft 3 in Weight 97.976 kg BMI 27.0 BP 110/78 Blood Pressure Location Rt brachial Position Sitting Respiration 18 Pulse 106 H Pulse Source Pulse Oximeter Temp 98.4 F Temp Source Temporal Artery Scan Pulse Oximetry (%) 96 Oxygen Delivery Method Room Air Intake Visit Reasons: 4 MONTH FOLLOW UP-RIC PT Sorority Supervisor Required: No Accompanied by: Other Relationship Allergies Penicillins (PENICILLINS) Allergy (Unknown, Verified 05/11/25 11:51) RASH/BREATHING DIFFICULTY Medication List - Last Reconciled 05/11/25 by Kenyatta iFnn LPN allopurinol 300 mg PO DAILY ascorbate calcium (vitamin C) 500 mg PO DAILY blood sugar diagnostic (FreeStyle Lite Strips) USE DIRECTED THREE TIMES DAILY TO TEST BLOOD SUGAR blood-glucose meter (FreeStyle Lite Meter kit) As directed bupropion HCl SR 150 mg PO BID cholecalciferol (vitamin D3) (Vitamin D3) 50 mcg PO DAILY empagliflozin (Jardiance) 25 mg PO QAM glucose (Dex4 Glucose Quick Dissolve) 16 grams (4 x 4 gram) PO Q15M PRN ibuprofen 800 mg PO Q8H icosapent ethyl (Vascepa) 2 grams (2 x 1 gram) PO BID insulin glargine (Lantus Solostar U-100 Insulin) 16 units (0.16 mL) subcut DAILY lancets (FreeStyle Lancets) TEST BLOOD SUGAR 3X DAILY DIRECTED levothyroxine (Levoxyl) 100 mcg PO DAILY loratadine 10 mg PO DAILY losartan 25 mg PO DAILY metformin ER 2,000 mg (4 x 500 mg) PO DAILY pen needle, diabetic USE DIRECTED EVERY DAY simvastatin 40 mg PO BEDTIME tirzepatide (Mounjaro) 5 mg (0.5 mL) subcut QWEEK HPI HPI Comments History of Present Illness Details 50-year-old male with history of 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 He has a prior Dr. Hoffman, last seen about 3 months. Follows every 3 months. He lives independently with VNA nurse every morning. He works T2 diabetes- fasting glucose 148 this am. Follows with endocrinology. Last A1c 7.0%, improved from 7.5%. On Mounjaro 5 mg weekly, metformin 2000 mg daily ER, 16 units Lantus, Jardiance 25 mg daily. Does wear a continuous glucose monitor. Follows annually for eye exams Diabetic polyneuropathy-managed Diabetic nephropathy-last GFR >60 Hypertension-blood pressure in the office today is 110/78. Taking losartan 25 mg daily Hyperlipidemia/hypertriglyceridemia-on simvastatin 40 mg nightly Hypothyroidism-following with endocrinology. Last TSH 2.14, free T4 1.03. Compliant with levothyroxine 100 mcg daily. Overweight-BMI 27.0 Concerns: Reporting episodes of dizziness that occurs several times monthly. Reports a only lasts several sec. Describes a room spinning sensation but does not feel off balance. Not worsening with head movements. This is positional. There has been no syncope. No shortness a breath, palpitations, chest pains. He does endorse along with [facility] that he only drinks minimal amounts of water while taking his medications. Otherwise he is only drinking coffee and sugar free sodas throughout the day. Orthostatic vital signs: Lying 102/65 HR 100, sitting 105/66 HR 110, standing 99/68 HR 117 Health maintenance: Due for PSA Last colonoscopy ROS: See HPI EXAM: Constitutional - Awake and Alert, No apparent distress Eyes - PERRL Cardiovascular - S1S2, RR, tachycardic, No edema Respiratory - Normal lung expansion, Normal respiratory effort, No respiratory distress, CTA bilaterally Extremities - no calf tenderness bilaterally, no swelling Skin - Warm/Dry Neurological - Alert & oriented x3, strabismus, unable to fully asses eom's Psychological - Appropriate affect [facility] Medical History (Updated 05/11/25 @ 12:31 by PAUL Oliver) Learning disability Hypertriglyceridemia Abscess Gout Depression Hypothyroidism Proteinuria Type 2 diabetes mellitus with diabetic polyneuropathy Dyslipidemia Essential hypertension Obesity (BMI 30.0-34.9) Type 2 diabetes mellitus with other diabetic kidney complication Surgical History Hx of removal of cyst Family History Father No problems noted. Mother No problems noted. Maternal Grandmother Diabetes Social History Household Members: None Alcohol intake: former Patient Tobacco Use Status: Never used Tobacco Physical exam (Primary Care) Vital Signs: Last Vital Signs Temp 98.4 F 05/11/25 12:08 Pulse 106 H 05/11/25 12:08 Resp 18 05/11/25 12:08 BP 110/78 05/11/25 12:08 Pulse Ox 96 05/11/25 12:08 Oxygen Delivery Method Room Air 05/11/25 12:08 BMI result Body Mass Index 27.0 Tobacco/Smoking Status: Tobacco use Status Patient Tobacco Use Status Never used Tobacco 05/11/25 11:52 Coding Level of Care Code New Pt Level 4 (30458) Complex EM visit Add On G2211 Diagnoses Essential hypertension I10 Dyslipidemia E78.5 Type 2 diabetes mellitus with diabetic polyneuropathy, with long-term current use of insulin E11.42; Z79.4 Diabetes mellitus intermediate insulin use: with superintendent terminal use Hypothyroidism E03.9 Dizziness R42 Assessment & Plan Assessment & Plan (1) Essential hypertension: Code(s): I10 - Essential (primary) hypertension Category: Medical Plan: Historically low normal, has been borderline hypotensive. Recommend increasing water intake to at least 64 oz daily-discussed that this can be flavored. Only 1 cup of water daily and significantly decreased disorder intake: Has been drinking 2-4 L daily. Discontinue losartan 25 mg, add lisinopril 2.5 mg daily (2) Dyslipidemia: Code(s): E78.5 - Hyperlipidemia, unspecified Category: Medical Plan: Lipid panel ordered. Continue simvastatin (3) Type 2 diabetes mellitus with diabetic polyneuropathy: Code(s): E11.42 - Type 2 diabetes mellitus with diabetic polyneuropathy Category: Medical Qualifiers: Diabetes mellitus intermediate insulin use: with superintendent terminal use Qualified Code(s): E11.42 - Type 2 diabetes mellitus with diabetic polyneuropathy; Z79.4 - care home (current) use of insulin Plan: Control improved. Updated hemoglobin A1c ordered. Continue following with endocrinology and continue therapies as prescribed (4) Hypothyroidism: Code(s): E03.9 - Hypothyroidism, unspecified Category: Medical Plan: TSH/free T4 ordered. Continue levothyroxine (5) Dizziness: Code(s): R42 - Dizziness and giddiness Category: Medical Plan: Suspect this is orthostatic in nature due to poor p.o. intake/hypovolemia/hypoperfusion. Recommend fluid intake as above. Holter monitor also ordered. Labs as below Plan Follow-up in the office in 3 months Orders: Orders Basic Metabolic Panel 2 Weeks E03.9 - Hypothyroidism, unspecified, E11.29 - Type 2 diabetes mellitus with other diabetic kidney complication, E78.1 - Pure hyperglyceridemia, E78.5 - Hyperlipidemia, unspecified, I10 - Essential (primary) hypertension, Z12.5 - Encounter for screening for malignant neoplasm of prostate Hemoglobin A1c 2 Weeks E03.9 - Hypothyroidism, unspecified, E11.29 - Type 2 diabetes mellitus with other diabetic kidney complication, E78.1 - Pure hyperglyceridemia, E78.5 - Hyperlipidemia, unspecified, I10 - Essential (primary) hypertension, Z12.5 - Encounter for screening for malignant neoplasm of prostate Lipid Panel 2 Weeks E03.9 - Hypothyroidism, unspecified, E11.29 - Type 2 diabetes mellitus with other diabetic kidney complication, E78.1 - Pure hyperglyceridemia, E78.5 - Hyperlipidemia, unspecified, I10 - Essential (primary) hypertension, Z12.5 - Encounter for screening for malignant neoplasm of prostate Thyroid Stimulating Hormone 2 Weeks E03.9 - Hypothyroidism, unspecified, E11.29 - Type 2 diabetes mellitus with other diabetic kidney complication, E78.1 - Pure hyperglyceridemia, E78.5 - Hyperlipidemia, unspecified, I10 - Essential (primary) hypertension, Z12.5 - Encounter for screening for malignant neoplasm of prostate ECG 3 day holter monitor Today E03.9 - Hypothyroidism, unspecified, E11.42 - Type 2 diabetes mellitus with diabetic polyneuropathy, E78.5 - Hyperlipidemia, unspecified, I10 - Essential (primary) hypertension, R42 - Dizziness and giddiness, Z79.4 - superintendent terminal (current) use of insulin Complete Blood Count Auto Diff 2 Weeks E03.9 - Hypothyroidism, unspecified, E11.29 - Type 2 diabetes mellitus with other diabetic kidney complication, E78.1 - Pure hyperglyceridemia, E78.5 - Hyperlipidemia, unspecified, I10 - Essential (primary) hypertension, Z12.5 - Encounter for screening for malignant neoplasm of prostate Liver Panel 2 Weeks E03.9 - Hypothyroidism, unspecified, E11.29 - Type 2 diabetes mellitus with other diabetic kidney complication, E78.1 - Pure hyperglyceridemia, E78.5 - Hyperlipidemia, unspecified, I10 - Essential (primary) hypertension, Z12.5 - Encounter for screening for malignant neoplasm of prostate Prostate Specific Antigen 2 Weeks E03.9 - Hypothyroidism, unspecified, E11.29 - Type 2 diabetes mellitus with other diabetic kidney complication, E78.1 - Pure hyperglyceridemia, E78.5 - Hyperlipidemia, unspecified, I10 - Essential (primary) hypertension, Z12.5 - Encounter for screening for malignant neoplasm of prostate TSH reflex Free T4 2 Weeks E03.9 - Hypothyroidism, unspecified, E11.29 - Type 2 diabetes mellitus with other diabetic kidney complication, E78.1 - Pure hyperglyceridemia, E78.5 - Hyperlipidemia, unspecified, I10 - Essential (primary) hypertension, Z12.5 - Encounter for screening for malignant neoplasm of prostate Medications: New lisinopril 2.5 mg PO DAILY 90 tabs 1RF Discontinued losartan Discontinued Reason: Doctor's Order 25 mg PO DAILY 90 tabs 1RF Patient Instructions: BLood pressures are low normal which could be causing your dizziness Im going to discontinue the losartan 25mg, start lisinopril 2.5mg Please drink at least 64 oz of water daily (4-16oz glasses). Can flavor with Crystal Light. Only 1 cup of coffee (8oz). Rare soda use.
[2025-05-11 12:08] VITALS: BP 110/78; PULSE 106; RESP 18; TEMP 36.9; O2SAT 96; BMI 27.0
--- OUTSIDE RECORDS SUMMARY | 2025-05-11 14:48 | XMS_ITS | Clinical Summary ---
Author Organization [address] [facility] Address [address] [place] [address] Phone Care Team Providers Care Surveyor Helper Name Role Phone Nathan Hoffman MD Primary Care Provider [phone] Allergies Active Allergy Reactions Criticality Noted Date [...] WEEK. REPLACES MOUNJARO 2.5 MG 5 Active Medical History Medical History Date Comments Hyperlipidemia DX:Hyperlipidemi a Essential hypertension DX:Essent ial hypertension Diabetes mellitus type 2, co ntrolled, with complications (CMS/HCC V24, CMS/HCC V28) DX:Diabetes mellitus type 2, controlled, with complications ([facility]) Depressive disorder DX:Depressiv e disorder [...] Upcoming Encounters Date Type Department Care Team ([facility] st Contact Info) Description 05/24/2025 1:00 PM EDT Office Visit Orthopedic Surgery - [place] [address] [phone] Josh Diaz, DPM [address] [phone] Health Maintenance Due Date Last Done Comments DTaP,Tdap,and Td Vaccines (1 - Tdap) 1993 Hepatitis B Vaccines (1 of 3 - 19+ 3-dose series) 1993 Pneumococcal Vaccine: 50+ Years (2 of 2 - PCV) 06/19/2018 06/19/2017 Cholesterol Screening (Lipid Panel) 07/20/2022 Colorectal Cancer Screening: Colonoscopy 07/20/2022 HIV Screening 07/20/2022 Hepatitis C Screening 07/20/2022 Social Influencers of Health Screening 07/20/2022 Zoster Vaccines (1 of 2) 2024 Depression Screening 08/18/2024 Influenza Vaccine (#1) 2025 , 08/15/2023, 07/25/2016, [...] topic Insurance MEDICAID - [place] Care Teams Surveyor Helper Relationship Specialty Start Date End Date Nathan Hoffman MD [address] [place] [address] [place] [address] PCP - General 08/21/07
== END 2025-05-11 12:59 | disposition home or self-care (01) ==
LOC: HO.HMCHD 11:49
PROVIDERS: PCP Physician Assistant; Visit Provider Physician Assistant
DX: I10 Essential (primary) hypertension (principal); E78.5 Hyperlipidemia, unspecified; E11.42 Type 2 diabetes mellitus with diabetic polyneuropathy; Z79.4 Long term (current) use of insulin; E03.9 Hypothyroidism, unspecified; R42 Dizziness and giddiness

== ENCOUNTER → 2025-05-11 11:49 | Outpatient (BNVA) | payer OTHER, SELFPAY | PROVIDERS: PCP Family Medicine; Visit Provider Physician Assistant | DX: I10 Essential (primary) hypertension (principal); E78.5 Hyperlipidemia, unspecified; E11.42 Type 2 diabetes mellitus with diabetic polyneuropathy; E11.21 Type 2 diabetes mellitus with diabetic nephropathy; E03.9 Hypothyroidism, unspecified; R42 Dizziness and giddiness; Z79.4 Long term (current) use of insulin; Z79.899 Other long term (current) drug therapy | CPT/HCPCS: 99202 ==

== ENCOUNTER 2025-06-07 11:30 | Outpatient (AMB) | payer OTHER, SELFPAY ==
--- NOTE | 2025-06-07 11:31 | MHC.OFFVIS ---
Vital Signs 06/07/25 11:32 Height 6 ft 3 in Weight 214 lb 8.156 oz BMI 26.8 BP 104/76 Blood Pressure Location Lt brachial Position Sitting Pulse 98 Pulse Source Pulse Oximeter Pulse Oximetry (%) 96 Oxygen Delivery Method Room Air Intake Visit Reasons: Type II diabetes Intake Note: Patient present today to follow up on Type 2 Diabetes Mellitus. Last Diabetic Eye exam: 10/28/2024 [facility] Last Podiatry Visit: Does not see a Bariatric Nurse Random Glucose: 109 mg/dl HgA1C: 6.6% Training Associate Required: No Accompanied by: Self / Same As Patient Allergies Penicillins (PENICILLINS) Allergy (Unknown, Verified 06/07/25 11:36) RASH/BREATHING DIFFICULTY HPI Comments Details: This is a 50-year-old male with a past medical history of type 2 diabetes with nephropathy, learning disability hypothyroidism, depression, dyslipidemia, obesity and hypertension presenting for diabetes management. Hemoglobin a1c is today is 6.6% down from 7%. Glucometer 30 day average 115 He's trying to follow a diabetic diet He only has zero sugar juice and soda. Current medication regimen: Jardiance 25 mg daily Lantus 16 units daily Metformin extended release 2000 mg daily Mounjaro 5 mg weekly Past medication: Invokana had to be switched to Jardiance this year due to insurance. Hypoglycemia symptoms: none reported Hyperglycemia symptoms: none reported Followed by podiatry, Dr. Martinez. Eye exam: [facility] 10/28/24. No known retinopathy or edema, but it is noted that he refuses dilation drops which may limit the exam. Microvascular complications: Nephropathy and neuropathy Macrovascular complications: None Hypertension: Losartan switched to Lisinopril. Hyperlipidemia: treated with simvastatin 40 mg and Vascepa. ROS: Constitutional: No unexplained weight loss, fever, chills, fatigue or night sweats. Eyes: No vision changes Respiratory: No shortness of breath Cardiovascular: No chest pain Gastrointestinal: No anorexia, nausea, vomiting or diarrhea. No abdominal pain or blood Neurologic: No numbness or tingling in the extremities. No dizziness or syncope. Endocrine: No cold or heat intolerance. No polyuria or polydipsia. Physical exam: Constitutional: Alert, in no distress. Eyes: Pupils are equal, round and reactive to light. Extraocular muscles intact. Neck: Supple, Full range of motion. No lymphadenopathy. No palpable thyroid masses. Respiratory: Clear to auscultation. Cardiovascular: S1 S2 regular. No murmurs. Feet: Warm and well perfused. No clubbing, cyanosis or edema. Intact DP pulses bilaterally. No open wounds or ulcers. [facility] Medical History (Updated 05/11/25 @ 12:31 by PAUL Oliver) Learning disability Hypertriglyceridemia Abscess Gout Depression Hypothyroidism Proteinuria Type 2 diabetes mellitus with diabetic polyneuropathy Dyslipidemia Essential hypertension Obesity (BMI 30.0-34.9) Type 2 diabetes mellitus with other diabetic kidney complication Surgical History Hx of removal of cyst Family History Father No problems noted. Mother No problems noted. Maternal Grandmother Diabetes Social History Household Members: None Alcohol intake: former Patient Tobacco Use Status: Never used Tobacco Physical Exam Vital Signs: Last Vital Signs Pulse 98 06/07/25 11:32 BP 104/76 06/07/25 11:32 Pulse Ox 96 06/07/25 11:32 Oxygen Delivery Method Room Air 06/07/25 11:32 BMI result Body Mass Index 26.8 Results AMB Hemoglobin A1c AMB Hemoglobin A1c 6.6 % Last Edit by DOMINIC Tijerina on 06/07/25 11:49 Results Reviewed Results Reviewed: Laboratory Last Values Glucose (Clinic) 109 mg/dL (60-115) 06/07/25 11:39 Hgb A1c (Clinic) 6.6 % (4.0-6.0) H 06/07/25 11:49 Laboratory Tests 01/11/22 06/10/24 12/21/24 11:17 10:00 12:00 Creatinine Estimated GFR AST ALT LDL Cholesterol Direct 87 Cholesterol 116 LDL Cholesterol, Calc 51 HDL Cholesterol 46 TSH Urine Creatinine 149.57 Urine Microalbumin 208.0 Microalb/Creat Ratio 139.0 H 01/20/25 11:48 Creatinine 1.04 Estimated GFR > 60 AST 29 ALT 39 LDL Cholesterol Direct Cholesterol LDL Cholesterol, Calc HDL Cholesterol TSH 2.14 Urine Creatinine Urine Microalbumin Microalb/Creat Ratio Assessment & Plan Assessment & Plan (1) Type 2 diabetes mellitus with other diabetic kidney complication: Code(s): E11.29 - Type 2 diabetes mellitus with other diabetic kidney complication Category: Medical (2) Proteinuria: Code(s): R80.9 - Proteinuria, unspecified Category: Medical Qualifiers: Proteinuria type: unspecified Qualified Code(s): R80.9 - Proteinuria, unspecified (3) Hypertriglyceridemia: Code(s): E78.1 - Pure hyperglyceridemia Category: Medical (4) Essential hypertension: Code(s): I10 - Essential (primary) hypertension Category: Medical Plan In summary this is a 50-year-old male with controlled type 2 diabetes with microvascular complications. Continue jardiance 25 mg daily, Lantus 16 units every morning, Mounjaro 5 mg every week and Metformin 2000 mg every morning. Continue to monitor blood sugars. Patient has repeatedly declined CGM. Reviewed treatment of hypoglycemia. Continue lisinopril for hypertension and renal protection. Continue simvastatin and Vascepa. Follow up in 3 months for type 2 diabetes. Patient is reminded to have lab work completed that was ordered by his primary care provider. Orders: Orders AMB Hemoglobin A1c Today E11.29 - Type 2 diabetes mellitus with other diabetic kidney complication, Z13.9 - Encounter for screening, unspecified Medications: Refilled insulin glargine (Lantus Solostar U-100 Insulin) 16 units (0.16 mL) subcut DAILY 15 mL 5RF E11.29 - Type 2 diabetes mellitus with other diabetic kidney complication Coding Level of Care Code Est Pt Level 4 (36216) Complex EM visit Add On G2211 Diagnoses Type 2 diabetes mellitus with other diabetic kidney complication E11.29 Proteinuria, unspecified type R80.9 Proteinuria type: unspecified Hypertriglyceridemia E78.1 Essential hypertension I10
[2025-06-07 11:32] VITALS: BP 104/76; PULSE 98; O2SAT 96; BMI 26.8
[2025-06-07 11:43] LABS: Glucose, Whole Blood 109 mg/dL (60-115)
== END 2025-06-07 11:57 | disposition home or self-care (01) ==
LOC: HO.ENCR 11:31
PROVIDERS: PCP Family Medicine; Visit Provider Physician Assistant Medical
DX: E11.29 Type 2 diabetes mellitus with other diabetic kidney complication (principal); R80.9 Proteinuria, unspecified; E78.1 Pure hyperglyceridemia; I10 Essential (primary) hypertension; Z13.9 Encounter for screening, unspecified

== ENCOUNTER → 2025-06-07 11:30 | Outpatient (BNVA) | payer OTHER, SELFPAY | PROVIDERS: PCP Family Medicine; Visit Provider Physician Assistant Medical | DX: E11.29 Type 2 diabetes mellitus with other diabetic kidney complication (principal); R80.9 Proteinuria, unspecified; I10 Essential (primary) hypertension | CPT/HCPCS: 82947; 83036; 99212 ==

== ENCOUNTER → 2025-07-19 12:36 | Outpatient (REF) | payer OTHER, SELFPAY ==
--- OUTSIDE RECORDS SUMMARY | 2025-07-19 14:31 | XMS_ITS | Clinical Summary ---
Author Organization 175 [facility] Address [address] [place] [address] Phone Care Team Providers Care Search Developer Name Role Phone Nathan Hoffman MD Primary Care Provider [phone] Allergies Active Allergy Reactions Criticality Noted Date [...] type 2, controlled, with complications ([facility]) Depressive disorder DX:Depressiv e disorder Hypothyroidism DX:Hypothyroidis [...] Care Team (Late st Contact Info) Description 08/29/2025 2:15 PM EST Office Visit Orthopedic Surgery - [place] [address] [phone] Josh Diaz, DPM [address] [phone] Health Maintenance Due Date Last Done Comments Colorectal Cancer Screening: Colonoscopy 1974 DTaP,Tdap,and Td Vaccines (1 - Tdap) 1993 Hepatitis B Vaccines (1 of 3 - 19+ 3-dose series) 1993 Pneumococcal Vaccine: 50+ Years (2 of 2 - PCV) 06/19/2018 06/19/2017 Cholesterol Screening (Lipid Panel) 07/20/2022 HIV Screening 07/20/2022 Hepatitis C Screening 07/20/2022 Social Influencers of Health Screening 07/20/2022 RSV Immunization Adult Patients (1 - Risk 50-74 years 1-dose series) 2024 Zoster Vaccines (1 of 2) 2024 Depression Screening 08/18/2024 COVID-19 Vaccine ( - season) 2025 05/26/2024, 08/15/2023, 07/19/2021, Additional history exists Influenza Vaccine (#1) 2025 , 08/15/2023, 07/25/2016, Additional history exists HIB Vaccines Aged [...] topic Insurance MEDICAID - [place] Care Teams Search Developer Relationship Specialty Start Date End Date Nathan Hoffman MD [address] [place] [address] [place] [address] PCP - General 08/21/07
== END ==
LOC: HO.CARD 12:36
PROVIDERS: PCP Physician Assistant; Visit Provider Physician Assistant
DX: E11.42 Type 2 diabetes mellitus with diabetic polyneuropathy (principal); E11.69 Type 2 diabetes mellitus with other specified complication; E78.5 Hyperlipidemia, unspecified; E03.9 Hypothyroidism, unspecified; I10 Essential (primary) hypertension; R42 Dizziness and giddiness; Z79.4 Long term (current) use of insulin
CPT/HCPCS: 93242

== ENCOUNTER → 2025-07-19 12:38 | Outpatient (BNV) | payer OTHER, SELFPAY | PROVIDERS: PCP Physician Assistant; Visit Provider Internal Medicine Cardiovascular Disease | DX: I10 Essential (primary) hypertension (principal) | CPT/HCPCS: 93244 ==